=== PATIENT | male | born 1935 | race Caucasian/White ===

== ENCOUNTER 2023-06-24 18:25 | Observation (INO) | payer MEDICARE, OTHER, SELFPAY ==
[2023-06-24] VITALS (10 sets, daily range): BP systolic 98–130; BP diastolic 50–63; BMI 28.5; BMI 22.7
--- NOTE | 2023-06-24 12:25 | ED.GENMED ---
History of Present Illness
General
Chief Complaint: Cough
Source: patient and family
Exam Limitations: none
Time Seen by Provider: 06/24/23 12:07
Nursing documentation reviewed up to this point in time: agreed with
Travel History
Have you had any contact with someone who has COVID-19?: No
Do you have any symptoms of coronavirus? Fever > 100 degrees, chills, cough, shortness of breath, sore throat, loss of taste or smell, muscle aches, or headache?: No
History of Present Illness
History of Present Illness:
Patient is an 87-year-old male with past medical history of polymyalgia rheumatica CAD hyperlipidemia reflux, chronic kidney disease stage III, right hip replacement presents to the ER for weakness over the past 2 weeks. He also has had some joint
aches and muscle aches. Today however he developed a fever as high as 102. Here in the ER patient and family noticed that his bilateral lower extremities were very red they believe this is new. He has had mild cough, denies shortness of breath.
Denies any urinary frequency urgency or dysuria
Past History
Past History
ED Past Medical History: Asthma, CAD, COPD, GERD and Other (Osteoarthritis, cataracts, spinal stenosis)
ED Past Surgical History: Orthopedic and Other (Cataracts)
Social History
Tobacco: Non-smoker
Alcohol: None
Drug: None
Personal:
Living: with family
Review of Systems
Review of Systems
Allergies reviewed?: Yes
Other source history: family
All Other Systems: ROS reviewed and negative except as documented in HPI and ROS
Constitutional: Reports fever (fever 102 today ) and fatigue
EENT: Reports no symptoms
Respiratory: Reports no symptoms; Denies trouble breathing
Cardiac: Reports no symptoms
ABD/GI: Reports no symptoms
: Reports no symptoms
Musculoskeletal: Reports other (today here noticed redness to b/l l/e and increased swelling )
Skin: Reports other (see above )
Neurological: Reports no symptoms
Psychiatric: Reports no symptoms
Phy Exam
General Physical Exam
General Presentation: no apparent distress
General age: appears stated age
General Skin: warm and dry
General Habitus: elderly
General Mental: alert
General Hydration: appears well hydrated
Cardiovascular Exam
Cardiovascular Exam: regular rate/rhythm, no murmur and normal peripheral pulses
Pulmonary Exam
Pulmonary Exam: lungs clear and no respiratory distress
Neurological Exam
Neurological Exam: alert and oriented x3
Musculoskeletal Exam
Musculoskeletal Exam: other (Bilateral lower extremities are red and swollen increased to right lower extremity, scattered blistering to left lower leg )
Skin Exam
Skin Exam: normal color and warm/dry
Psychiatric Exam
Psychiatric Exam: normal mood/affect
Course
Orders/Labs/Results
Orders:
Orders
06/24/23 12:25
Cardiac Monitoring- Treatment ONCE
IV Insert/Care/Rem.- Treatment PRN
06/24/23 12:31
COVID-19 Antigen Urgent
Source: Nasal Swab
Complete Blood Count/With Diff Urgent
Comprehensive Metabolic Panel Urgent
Lactic Acid Q4H
Comment: CANCEL 2nd LACTIC ACID IF 1st LACTIC ACID IS LESS THAN 2
Blood Culture Q30M
RAFAEL Source: Blood/Venous
Specimen Description:
Blood Culture Q30M
RAFAEL Source: Blood/Venous
Specimen Description:
Influenza A+B Rapid Molecular Urgent
RAFAEL Source: Nasal Swab
Specimen Description:
06/24/23 13:59
Chest [CR Chest - 2 Views ] Urgent
Comment:
Reason For Exam: fever
06/24/23 14:02
Electrocardiogram (*1) Urgent
Reason for Study: Other
Other Reason for Exam: admission
Cardiac Monitoring- Treatment ONCE
EKG- Treatment ONCE
06/24/23 16:10
Urinalysis Reflex To Culture Urgent
Date Specimen was Collected: 06/24/23
Time Specimen was Collected: 13:12
06/24/23 16:16
CeFAZolin 1 GRAM [Ancef] 1 gram in 5 ml IV NOW
06/24/23 16:46
Venous Doppler Lwr Ext Bilat [US Periph Venous LOWER Ext Magnus] Urgent
Comment:
Reason For Exam: swelling
Abnormal Lab Results
06/24/23
12:31
RBC 3.41 L 10^6/uL
(4.70-6.10)
Hgb 11.8 L g/dL
(13.0-18.0)
Hct 33.7 L %
(39.0-52.0)
MCV 98.8 H fL
(80.0-94.0)
MCH 34.6 H pg
(27.0-31.0)
Abs Immat Gran (auto) 0.1 H 10^3/uL
(0-0.05)
Absolute Lymphs (auto) 0.7 L 10^3/uL
(1.2-3.4)
Absolute Monos (auto) 0.8 H 10^3/uL
(0.1-0.6)
Immature Gran % 0.7 H %
(0-0.5)
Lymphocytes % 7.6 L %
(20.5-51.1)
Monocytes % 9.7 H %
(1.7-9.3)
Eosinophils % 8.2 H %
(0-6)
Sodium 133 L mmol/L
(135-145)
BUN 45 H mg/dl
(9-20)
Creatinine 2.0 H mg/dL
(0.7-1.3)
Glucose 103 H mg/dl
(70-99)
Calcium 7.9 L mg/dl
(8.4-10.2)
Total Bilirubin 2.1 H mg/dl
(0.2-1.3)
Total Protein 5.5 L g/dl
(6.3-8.2)
Albumin 3.2 L g/dl
(3.5-5.0)
06/24/23 12:31
06/24/23 12:31
Vital Signs
Initial and Last Documented VS:
Initial Vital Signs
Temp Pulse Resp Pulse Ox
99.1 F 64 13 93
06/24/23 11:56 06/24/23 11:56 06/24/23 11:56 06/24/23 11:56
Last Documented Vital Signs
Temp Pulse Resp BP Pulse Ox
98.5 F 57 12 109/52 94
06/24/23 15:26 06/24/23 15:26 06/24/23 15:26 06/24/23 15:26 06/24/23 15:26
MDM/Problems Addressed
Differential Diagnosis Includes:
not limited to:
Infection cellulitis dehydration anemia URI COVID flu
MDM/Problems Addressed:
Patient is an 87-year-old male with history as document above presents with weakness for the past 2 weeks and then today developed a fever of 102.
On exam patient has significant erythema to bilateral lower extremities worse on the right lower extremity with swelling. Patient is afebrile here with a normal white count negative lactic however with significant swelling and complaints of
weakness will admit and treat for cellulitis. Patient does have a history of chronic kidney disease renal function elevated however at baseline. Pt has had mild cough neg covid neg flu will check chest . no UTI c/o however will check urine
1647: Patient's urine is negative. No acute findings on chest x-ray. Will admit and treat for cellulitis. Will order ultrasound of bilateral lower extremities. IV Ancef was ordered. Case discussed admitting hospitalist
Chronic conditions affecting care:
ESRD
*Radiology
Radiology exam reviewed: preliminary read by ED provider
*Pulse Oximetry
Patient hypoxic: no
*EKG
Interpreted by ED Provider?: Yes
Interpretation: normal
Comparison EKG: no changes
Heart Rate: 58
Rate: bradycardiac
Rhythm: sinus
*Critical Care Note
Total Time (30-74mins, 75-104mins- exclusive of procedures): Not Applicable
ED Attending Note
-
Portions of this chart may have been created with voice recognition software.� Occasional wrong word or��sound alike� substitutions may have occurred due to the inherent limitations of voice recognition software.
Discharge Plan
Departure
Patient Disposition: Admit
Date of Disposition: 06/24/23
Time of Disposition: 16:47
Admit to: Med/Surg
Admit to doctor: hospitalist
Presentation/result/management discussed w/ accepting MD/DO: Hospitalist
Patient with high blood pressure during this ER visit?: No
Condition: Fair
Covid-19: Not Applicable
Discharge Problem:
Weakness, Cellulitis
Prescriptions:
No Action
atorvastatin 10 MG tablet
10 mg PO DAILY
pantoprazole 40 MG tablet,delayed release (DR/EC)
40 mg PO DAILY
cyanocobalamin (vitamin B-12) 1,000 MCG tablet
1,000 mcg PO DAILY
cholecalciferol (vitamin D3) 1,000 UNITS tablet
1,000 units PO DAILY
magnesium oxide 400 MG tablet
400 mg PO DAILY
aspirin 81 MG tablet,delayed release (DR/EC)
81 mg PO DAILY
acetaminophen [Tylenol Extra Strength] 500 MG tablet
500 mg PO Q8HPRN PRN (Reason: MILD PAIN)
potassium chloride 8 MEQ tablet extended release
8 meq PO Q48H
Rx Instructions:
takes with Lasix 40mg
prednisone 5 mg tablet
8 mg PO Q48H
Patient Comments:
06/24/2023: Pt takes a 5mg and 1mg's. and takes on days Lasix 40mg are taken
prednisone 5 mg tablet
9 mg PO Q48H
Patient Comments:
06/24/2023: Pt takes a 5mg and 1mg's. and takes on days Lasix 20mg are taken
furosemide 20 mg tablet
20 mg PO Q48H
coenzyme Q10 [Co Q-10] 100 mg Capsule
100 mg PO DAILY
PreserVision AREDS 4,296 mcg-226 mg-90 mg Capsule
1 cap PO DAILY
fluticasone furoate-vilanterol [Breo Ellipta] 100-25 mcg/dose blister with device
1 inh INHALATION R DAILY
chlorpheniramine maleate
1 tab PO DAILY
furosemide 40 MG tablet
40 mg PO Q48H
Referrals:
Primo Blanton MD [Family Provider] -
Interventions
Interventions:
*Risk Screen - Suicide Last Done: 06/24/23 11:56
*General Assessment Last Done: 06/24/23 11:56
*Neglect/Abuse Screening Last Done: 06/24/23 11:56
ED- Fall Risk Assessment Last Done: 06/24/23 12:00
*ED COVID-19 Vaccine History Last Done: 06/24/23 11:56
ED- Pulmonary Assessment Last Done: 06/24/23 12:00
[2023-06-24 12:56] LABS: % Basophils 0.7 % (0-2); % Eosinophils 8.2 % (0-6); % Immature Granulocytes 0.7 % (0-0.5); % Lymphocytes 7.6 % (20.5-51.1); % Monocytes 9.7 % (1.7-9.3); % Neutrophils 73.1 % (42.2-75.2); Absolute Basophils 0.1 10^3/uL (0-0.2); Absolute Eosinophils 0.7 10^3/uL (0-0.7); Absolute Immature Granulocytes 0.1 10^3/uL (0-0.05); Absolute Lymphocytes 0.7 10^3/uL (1.2-3.4); Absolute Monocytes 0.8 10^3/uL (0.1-0.6); Absolute Neutrophils 6.4 10^3/uL (1.4-6.5); Hematocrit 33.7 % (39.0-52.0); Hemoglobin 11.8 g/dL (13.0-18.0); Mean Corpuscular Hgb 34.6 pg (27.0-31.0); Mean Corpuscular Volume 98.8 fL (80.0-94.0); Mean Platelet Volume 9.5 fL (7.4-10.4); Nucleated Red Blood Cells % 0 % (-); Platelet Count 237 10^3/uL (130-400); Red Blood Cell Count 3.41 10^6/uL (4.70-6.10); Red Cell Dist. Width 13.8 % (11.5-14.5); White Blood Cell Count 8.7 10^3/uL (4.8-10.8)
[2023-06-24 13:06] LABS: COVID-19 Antigen Negative (Negative)
[2023-06-24 13:14] LABS: Lactic Acid 1.3 mmol/L (0.7-2.0)
[2023-06-24 13:15] LABS: ALT (SGPT) 22 U/L (0-50); AST (SGOT) 27 U/L (17-59); Albumin 3.2 g/dl (3.5-5.0); Alkaline Phosphatase 73 U/L (38-126); Blood Urea Nitrogen 45 mg/dl (9-20); Calcium 7.9 mg/dl (8.4-10.2); Carbon Dioxide 28 mmol/L (22-30); Chloride 98 mmol/L (98-107); Estimated Creatinine Clearance 25 ml/min; Glucose 103 mg/dl (70-99); Potassium 3.7 mmol/L (3.5-5.1); Sodium 133 mmol/L (135-145); Total Bilirubin 2.1 mg/dl (0.2-1.3); Total Protein 5.5 g/dl (6.3-8.2); eGFR 31.51
[2023-06-24 16:24] LABS: Urine Albumin Negative (Neg - Trace); Urine Bilirubin Negative (Negative); Urine Character Clear (Clear); Urine Color Yellow; Urine Glucose Negative (Negative); Urine Ketone Negative (Negative); Urine Leukocyte Negative (Negative); Urine Nitrite Negative (Negative); Urine Occult Blood Negative (Negative); Urine Urobilinogen Negative (Neg - 1+); Urine pH 6.5 (5.0-9.0)
[2023-06-24] MEDS: ANCEF 5 IV ×2 (16:47→23:00)
--- NOTE | 2023-06-24 16:51 | HPS.HSE ---
Family Physician
-
Family Physician: Primo Blanton
Chief Complaint
-
Weakness
History of Present Illness
87 y/o M with PMHx
CAD s/p stent
Essential hypertension
Hyperlipidemia
COPD
GERD
PMR
CKD3b
R hip replacement 01/2021
who p/w CC weakness. Patient reports he has been weak for the last 2 weeks. Over the last few days he has developed erythema in his legs. He had a fever of 102 �F this morning. 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
heart syndrome.' He denies chest pain, nausea, vomiting, diarrhea, visual symptoms, neck stiffness, focal neurological deficit. He does report some headache.
Medical History
Past Medical History
Past Medical History: Reports Other (as per HPI)
Past Surgical History: Reports Other (N/A)
Social History
Tobacco: Non-smoker
Alcohol: None
Drug: None
Family History
Family History: Not pertinent
Allergies / Home Medications
Allergies reflects when Allergies were last updated in [facility].
Home Medications with original date entered in [facility]
Allergy/Medication List:
Allergies
Allergy/AdvReac Type Severity Reaction Status Date / Time
tetracycline Allergy eruption Verified 04/15/21 05:37
of penis
Home Medications
atorvastatin 10 mg tablet 10 mg PO DAILY High cholesterol 01/30/19
pantoprazole 40 mg tablet,delayed release 40 mg PO DAILY Gastrointestinal issue 01/30/19
cholecalciferol (vitamin D3) 25 mcg (1,000 unit) tablet 1,000 units PO DAILY Supplement 02/03/21
cyanocobalamin (vitamin B-12) 1,000 mcg tablet 1,000 mcg PO DAILY Supplement 02/03/21
magnesium oxide 400 mg PO DAILY Supplement 02/03/21
acetaminophen 500 mg tablet (Tylenol Extra Strength) 500 mg PO Q8HPRN PRN MILD PAIN 04/15/21
aspirin 81 mg tablet,delayed release 81 mg PO DAILY Heart disease/condition 04/15/21
potassium chloride 8 mEq tablet,extended release 8 meq PO Q48H 04/15/21
chlorpheniramine maleate 1 tab PO DAILY 06/24/23
coenzyme Q10 100 mg capsule (Co Q-10) 100 mg PO DAILY 06/24/23
fluticasone furoate 100 mcg-vilanterol 25 mcg/dose inhalation powder (Breo Ellipta) 1 inh inhalation R DAILY 06/24/23
furosemide 20 mg tablet 20 mg PO Q48H 06/24/23
furosemide 40 mg tablet 40 mg PO Q48H 06/24/23
prednisone 5 mg tablet 8 mg PO Q48H 06/24/23
prednisone 5 mg tablet 9 mg PO Q48H 06/24/23
vitamins A,C,V-evin-oyodbn 4,296 mcg-226 mg-90 mg capsule (PreserVision AREDS) 1 cap PO DAILY 06/24/23
Review of Systems
-
History Source: Patient
A 12 point ROS was completed and negative except as noted: Yes
Physical Exam
Vital Signs
Vital Signs
Temp Pulse Resp BP Pulse Ox
98.5 F 57 12 109/52 94
06/24/23 15:26 06/24/23 15:26 06/24/23 15:26 06/24/23 15:26 06/24/23 15:26
Physical Exam
General: Other (.)
Laboratory Results
-
06/24/23 12:31
06/24/23 12:31
Laboratory Results
Lactic Acid Cancelled 06/24/23 16:30
Total Bilirubin 2.1 mg/dl (0.2-1.3) H 06/24/23 12:31
AST 27 U/L (17-59) 06/24/23 12:31
ALT 22 U/L (0-50) 06/24/23 12:31
Alkaline Phosphatase 73 U/L (38-126) 06/24/23 12:31
Impression/Plan
-
Gen: NAD, AAOx3, appears chronically ill
Eyes: EOMI, PERRLA, no scleral icterus.
Neck: supple.
CV: tl, reg rhythm, +S1/S2, no m/r/g.
Resp: CTAB, no rales, wheezes, or rhonchi.
Abd: +BS, soft, NT, ND
Skin: 3+ B/L LE edema. LLE>RLE edema.
Neuro: CN 2-12 intact, non-focal.
Psych: Normal mood and affect.
CXR (read by me, official read pending): Hyperinflation consistent with COPD, no focal infiltrate.
B/L LE erythema:
-LLE>RLE
-no fever here, no leukocytosis
-c/s ID
-IV Ancef for now but likely can quickly switch to PO Keflex if this is indeed cellulitis (could also simply be chronic venous stasis dermatitis)
Other problems:
CAD s/p stent: cont ASA/statin
Essential hypertension: SBPs in ER 90s-110s, question diagnosis. Pt on Lasix at home.
Hyperlipidemia: Cont statin
COPD: cont Breo Ellipta
GERD: cont PPI
PMR: cont Prednisone
CKD3b
R hip replacement 01/2021
DNR
--- NOTE | 2023-06-24 21:28 | W.PN.UPDATE ---
Update Note
Progress Note Update
pt requesting ambien. States he takes it daily at home.
pdmp checked script filled 06/23/23
[2023-06-24] MEDS: AMBIEN 5 MG PO (22:57)
[2023-06-24] MEDS: HEPARIN 5000 UNITS SC (23:00)
--- NOTE | 2023-06-24 23:53 | PTCARENOTE ---
Receive pt from ER. Pt alert oriented X3, calm and cooperative. Pt pulled over to his bed from the stretcher. Pt is in no distress, states that he has chronic spine pain. Air pillow offered for pt's back. Pt agreeable. Pt legs are red and swollen.
Pt refuses any pain medicine for now. Condom catheter placed on pt. VSS (T=98, HR=59, RR=18, XG=56001, SpO2=97% on RA). Pt oriented to the room, call saunders within reach. Will follow.
[2023-06-25 05:40] VITALS: BMI 22.8
[2023-06-25 06:02] LABS: % Basophils 0.4 % (0-2); % Eosinophils 16.6 % (0-6); % Immature Granulocytes 0.4 % (0-0.5); % Lymphocytes 15.1 % (20.5-51.1); % Monocytes 12.5 % (1.7-9.3); Absolute Eosinophils 1.4 10^3/uL (0-0.7); Absolute Lymphocytes 1.3 10^3/uL (1.2-3.4); Absolute Monocytes 1.1 10^3/uL (0.1-0.6); Absolute Neutrophils 4.7 10^3/uL (1.4-6.5); Hemoglobin 10.9 g/dL (13.0-18.0); Mean Corp Hgb Conc. 34.1 g/dL (33.0-37.0); Mean Corpuscular Hgb 33.9 pg (27.0-31.0); Mean Corpuscular Volume 99.4 fL (80.0-94.0); Mean Platelet Volume 9.5 fL (7.4-10.4); Nucleated Red Blood Cells % 0 % (-); Platelet Count 233 10^3/uL (130-400); Red Blood Cell Count 3.22 10^6/uL (4.70-6.10); Red Cell Dist. Width 13.5 % (11.5-14.5); White Blood Cell Count 8.6 10^3/uL (4.8-10.8)
[2023-06-25 06:21] LABS: Blood Urea Nitrogen 41 mg/dl (9-20); Calcium 7.8 mg/dl (8.4-10.2); Carbon Dioxide 33 mmol/L (22-30); Chloride 100 mmol/L (98-107); Estimated Creatinine Clearance 23 ml/min; Glucose 84 mg/dl (70-99); Potassium 3.3 mmol/L (3.5-5.1); Sodium 134 mmol/L (135-145); eGFR 29.72
[2023-06-25 07:00] VITALS: BP 111/53
[2023-06-25] MEDS: SYMBICORT 160/4.5 MCG INHALER 2 PUFF INH ×2 (08:09→20:16)
[2023-06-25] MEDS: ANCEF 5 IV ×3 (09:42→23:56)
[2023-06-25] MEDS: DELTASONE 4 MG PO (09:43)
[2023-06-25] MEDS: DELTASONE 5 MG PO (09:43)
[2023-06-25] MEDS: ASPIR LOW (ENTERIC COATED) 81 MG PO (09:43)
[2023-06-25] MEDS: HEPARIN 5000 UNITS SC ×3 (09:44→23:57)
[2023-06-25] MEDS: LASIX 20 MG PO (09:44)
[2023-06-25] MEDS: VITAMIN B-12 1000 MCG PO (09:44)
[2023-06-25] MEDS: VITAMIN D3 (cholecalciferol) 1000 UNITS PO (09:44)
[2023-06-25] MEDS: PROTONIX 40 MG PO (09:44)
[2023-06-25] MEDS: LIPITOR 10 MG PO (09:45)
[2023-06-25] MEDS: OCUVITE SOFTGEL 1 CAP PO (09:45)
[2023-06-25] MEDS: MAG-TAB SR 84 MG PO (09:45)
--- NOTE | 2023-06-25 09:54 | W.PN.HOSP.TC ---
Today's Communication/Plan
-
see bold
Assessment / Plan
Assessment / Plan
Gen: NAD, AAOx3, appears chronically ill
Eyes: EOMI, PERRLA, no scleral icterus.
Neck: supple.
CV: RRR, +S1/S2, no m/r/g.
Resp: CTAB anteriorly, no rales, wheezes, or rhonchi.
Abd: +BS, soft, NT, ND
Skin: 3+ B/L LE edema. B/L LE erythema.
Neuro: CN 2-12 intact, non-focal.
Psych: Normal mood and affect.
CXR: Findings suggesting new mild right upper lobe developing pneumonia.
B/L LE U/S: No sonographic evidence for lower extremity venous thrombosis. Moderate bilateral calf soft tissue edema.
B/L LE erythema:
-LLE>RLE on admission, now fairly equal B/L
-cont IV ancef for now as per ID
-Regarding the chest x-ray findings above, the patient has no symptoms of pneumonia. He is not hypoxemic, he is afebrile, and has no leukocytosis.
Other problems:
CAD s/p stent: cont ASA/statin
Essential hypertension: SBPs in ER 90s-110s, question diagnosis. Pt on Lasix at home.
Hyperlipidemia: Cont statin
COPD: cont Breo Ellipta
GERD: cont PPI
PMR: cont Prednisone
CKD3b
R hip replacement 01/2021
DNR
Anticipated Discharge: Within 24 hours
Subjective/Interval History
-
Date of Service: June 25, 2023
No new complaints.
Objective Data
-
Labs:
Laboratory Results
06/25/23
05:30
WBC 8.6
Hgb 10.9 L
Hct 32.0 L
Plt Count 233
Sodium 134 L
Potassium 3.3 L
Chloride 100
Carbon Dioxide 33 H
BUN 41 H
Creatinine 2.1 H
Glucose 84
Calcium 7.8 L
Vital Signs:
Vital Signs
Temp Pulse Resp BP Pulse Ox
98.2 F 63 16 111/53 96
06/25/23 07:00 06/25/23 09:44 06/25/23 08:12 06/25/23 09:44 06/25/23 08:12
I&O
06/24/23 06/25/23 06/26/23
06:59 06:59 06:59
Intake Total 240 / 240
Output Total 1000 / 1000
Balance -760 / -760
--- NOTE | 2023-06-25 10:07 | CON.ID ---
Consultation
-
Date/Time Consultation Requested: 06/24/2023 193
Date/Time Consultation Performed: 06/25/2023 0951
Requesting Provider: Dr. Rai
Performing Provider: Louie
Reason for Consultation: Lower extremity cellulitis
Chief Complaint / Past History
History of Present Illness
Abdias Chance is an 87-year-old male with significant past medical history of polymyalgia rheumatica being evaluated at the request of Dr. Rai in regards to lower extremity cellulitis. History is obtained from chart review, along with patient
interview.
The patient reports that approximate 2 weeks ago he developed with increasing general weakness, increasing depression and diffuse aches and pains which she notes is his common symptomatology with a flare of his PMR. He reports that he increased his
prednisone dose by 3 mg, but did not reach out to his physician regarding symptomatology. Ultimately he came to the emergency room because he was noted to have fever, and in the emergency room he was noted to have erythema of the lower extremities.
He has been started on antibiotics.
At this time he reports feeling about the same, with continued fatigue. His legs continue to remain edematous, but he denies significant pain in them. Since admission, he has not had any fevers recorded. Currently, he denies any chest pain or
shortness of breath. He denies any abdominal pain, nausea or vomiting.
Past History
Additional Past Medical History:
PMR
Asthma
CKD stage III
CAD
COPD
GERD
TEDDY
Spinal stenosis
Additional Past Surgical History:
Right hip replacement
Cataract surgery
Skin grafting
Allergy History:
tetracycline Allergy (Verified 04/15/21 05:37)
eruption of penis
Medications Reviewed: Yes
Current Antibiotics:
Cefazolin 1 g IV every 8 hours
Social History
Tobacco: Non-Smoker
Alcohol: None
Drug: None
Personal:
Living: With Family
Employment: Retired
Family History
Family History: Not Pertinent
Review of Systems
Vital Signs
Temp Pulse Resp BP Pulse Ox
98.2 F 63 16 111/53 96
06/25/23 07:00 06/25/23 09:44 06/25/23 08:12 06/25/23 09:44 06/25/23 08:12
Physical Exam
Physical Exam
Constitutional: No Acute Distress, Comfortable and Non-toxic
Eyes: No Conjunctival Hemorrhage and Sclera Anicteric
Cardiovascular: S1/S2; Negative S3/S4 or Murmur
Pulmonary: Clear and Non Labored; Negative Wheezes, Rales or Rhonchi
Gastrointestinal: Soft, Non Tender, Non Distended and Normal Bowel Sounds
Extremities: Edema (3+ B/L LE's with noted erythema. Mild warmth. Little significant tenderness.), Pulses and Venous Insufficiency
Musculoskeletal: Negative Joint Swelling or Joint Effusion
Skin: Warm and Dry; Negative Rash or Jaundice
Neurological: Awake and Alert
Psychological: Calm
Lab / Diagnostic Study Results
06/25/23 05:30
06/25/23 05:30
Abs Immat Gran (auto) 0.0 10^3/uL (0-0.05) 06/25/23 05:30
Absolute Neuts (auto) 4.7 10^3/uL (1.4-6.5) 06/25/23 05:30
Absolute Lymphs (auto) 1.3 10^3/uL (1.2-3.4) 06/25/23 05:30
Absolute Monos (auto) 1.1 10^3/uL (0.1-0.6) H 06/25/23 05:30
Absolute Basos (auto) 0.0 10^3/uL (0-0.2) 06/25/23 05:30
Immature Gran % 0.4 % (0-0.5) 06/25/23 05:30
Neutrophils % 55.0 % (42.2-75.2) 06/25/23 05:30
Lymphocytes % 15.1 % (20.5-51.1) L 06/25/23 05:30
Monocytes % 12.5 % (1.7-9.3) H 06/25/23 05:30
Eosinophils % 16.6 % (0-6) H 06/25/23 05:30
Basophils % 0.4 % (0-2) 06/25/23 05:30
Lactic Acid Cancelled 06/24/23 16:30
Microbiology Results
Micro:
06/24/23 12:31 Influenza Types A & B (NAT) - Final
Nasal Swab Negative for Influenza A & B, NAAT
Negative results must be combined with clinical observations
and patient history.
Nucleic Acid Amplification test (NAAT)performed on the
[employer] platform.
06/24/23 12:31 Blood Culture - Pending
Blood/Venous
06/24/23 12:31 Blood Culture - Pending
Blood/Venous
Imaging:
06/24/2023 bilateral lower extremity duplex ultrasound: No evidence of venous thrombosis. Moderate bilateral soft tissue edema.
Assessment / Plan
Bilateral lower extremity edema.
Bilateral lower extremity erythroderma
Reported fever (POA)
PMR
Asthma
CKD stage III
CAD
COPD
GERD
TEDDY
Spinal stenosis
Recommendations:
Blood cultures pending
Continue cefazolin for today.
Apply lower extremity compressive modalities to decrease edema. If improved erythema, can likely transition to oral Keflex in the next 24 hours.
Care Review
Plan reviewed with: Physician (Hospitalist)
[2023-06-25 11:45] VITALS: O2SAT 92
[2023-06-25 15:30] VITALS: BP 101/49
--- NOTE | 2023-06-25 15:37 | CM ---
CM reviewed medical records. [facility] letter given.
CM confirmed demographics. Patient lives independently with . Patient denies history of VN, SNF or DME. Patient uses [facility] for medication services. Patient is known to his PCP and is current. CM will continue to follow.
[2023-06-25] MEDS: COLACE 100 MG PO (20:47)
[2023-06-25] MEDS: AMBIEN 5 MG PO (20:50)
[2023-06-25 23:45] VITALS: BP 105/54
[2023-06-26 05:52] VITALS: BMI 22.7
[2023-06-26 07:25] VITALS: BP 110/53
[2023-06-26] MEDS: ANCEF 5 IV ×3 (07:57→23:11)
[2023-06-26] MEDS: DELTASONE 3 MG PO (07:58)
[2023-06-26] MEDS: ASPIR LOW (ENTERIC COATED) 81 MG PO (07:58)
[2023-06-26] MEDS: COLACE 100 MG PO (07:58)
[2023-06-26] MEDS: VITAMIN B-12 1000 MCG PO (07:59)
[2023-06-26] MEDS: OCUVITE SOFTGEL 1 CAP PO (07:59)
[2023-06-26] MEDS: PROTONIX 40 MG PO (07:59)
[2023-06-26] MEDS: MAG-TAB SR 84 MG PO (07:59)
[2023-06-26] MEDS: VITAMIN D3 (cholecalciferol) 1000 UNITS PO (07:59)
[2023-06-26] MEDS: KCL 10 MEQ PO (07:59)
[2023-06-26] MEDS: LIPITOR 10 MG PO (07:59)
[2023-06-26] MEDS: LASIX 40 MG PO (08:00)
[2023-06-26] MEDS: DELTASONE 5 MG PO (08:00)
[2023-06-26] MEDS: HEPARIN 5000 UNITS SC ×2 (08:00→16:04)
[2023-06-26] MEDS: SYMBICORT 160/4.5 MCG INHALER 2 PUFF INH ×2 (08:23→19:40)
--- NOTE | 2023-06-26 10:29 | W.PN.HOSP.TC ---
Today's Communication/Plan
-
see bold
Assessment / Plan
Assessment / Plan
Gen: NAD, AAOx3, appears chronically ill
Eyes: EOMI, PERRLA, no scleral icterus.
Neck: supple.
CV: tl, reg rhythm, +S1/S2, no m/r/g.
Resp: remains CTAB anteriorly, no rales, wheezes, or rhonchi.
Abd: +BS, soft, NT, ND
Skin: GIANNA wraps on B/L LEs
Neuro: CN 2-12 intact, non-focal.
Psych: Normal mood and affect.
CXR: Findings suggesting new mild right upper lobe developing pneumonia.
B/L LE U/S: No sonographic evidence for lower extremity venous thrombosis. Moderate bilateral calf soft tissue edema.
B/L LE erythema:
-LLE>RLE on admission, now fairly equal B/L
-cont IV ancef for now as per ID
-Regarding the chest x-ray findings above, the patient has no symptoms of pneumonia. He is not hypoxemic, he is afebrile, and has no leukocytosis.
Other problems:
CAD s/p stent: cont ASA/statin
Essential hypertension: SBPs in ER 90s-110s, question diagnosis. Pt on Lasix at home.
Hyperlipidemia: Cont statin
COPD: cont Breo Ellipta
GERD: cont PPI
PMR: cont Prednisone
CKD3b
R hip replacement 01/2021
DNR
Anticipated Discharge: Within 24 hours
Subjective/Interval History
-
Date of Service: June 26, 2023
Objective Data
-
Vital Signs:
Vital Signs
Temp Pulse Resp BP Pulse Ox
98.4 F 65 16 110/53 93
06/26/23 07:25 06/26/23 08:26 06/26/23 08:26 06/26/23 08:00 06/26/23 08:26
I&O
06/25/23 06/26/23 06/27/23
06:59 06:59 06:59
Intake Total 240 / 240 600 / 600
Output Total 1000 / 1000 550 / 550
Balance -760 / -760 50 / 50
[2023-06-26 11:00] LABS: % Basophils 0.4 % (0-2); % Eosinophils 14.7 % (0-6); % Immature Granulocytes 0.6 % (0-0.5); % Lymphocytes 8.9 % (20.5-51.1); % Monocytes 9.5 % (1.7-9.3); % Neutrophils 65.9 % (42.2-75.2); Absolute Eosinophils 1.2 10^3/uL (0-0.7); Absolute Immature Granulocytes 0.1 10^3/uL (0-0.05); Absolute Lymphocytes 0.7 10^3/uL (1.2-3.4); Absolute Monocytes 0.8 10^3/uL (0.1-0.6); Absolute Neutrophils 5.4 10^3/uL (1.4-6.5); Hematocrit 30.7 % (39.0-52.0); Hemoglobin 10.6 g/dL (13.0-18.0); Mean Corp Hgb Conc. 34.5 g/dL (33.0-37.0); Mean Corpuscular Hgb 33.3 pg (27.0-31.0); Mean Corpuscular Volume 96.5 fL (80.0-94.0); Mean Platelet Volume 9.1 fL (7.4-10.4); Nucleated Red Blood Cells % 0 % (-); Platelet Count 247 10^3/uL (130-400); Red Blood Cell Count 3.18 10^6/uL (4.70-6.10); Red Cell Dist. Width 13.5 % (11.5-14.5); White Blood Cell Count 8.2 10^3/uL (4.8-10.8)
[2023-06-26 11:09] LABS: Blood Urea Nitrogen 39 mg/dl (9-20); Calcium 7.8 mg/dl (8.4-10.2); Carbon Dioxide 31 mmol/L (22-30); Chloride 98 mmol/L (98-107); Estimated Creatinine Clearance 26 ml/min; Glucose 107 mg/dl (70-99); Potassium 3.4 mmol/L (3.5-5.1); Sodium 133 mmol/L (135-145); eGFR 33.51
[2023-06-26 13:55] VITALS: BP 107/52; PULSE 62
[2023-06-26 15:27] VITALS: BP 102/44
--- NOTE | 2023-06-26 16:08 | PTCARENOTE ---
Pt AAO x3, CROWE; OOB to chair/ambulated to BR with assist x1/walker, fabrizio well. VSS. On room air- pulseox 95%. Abd soft, rounded, fabrizio PO. Voids clear yellow urine in urinal. GIANNA wraps intact to BLE. Resting in bed at present, no c/o. Will
continue to monitor.
[2023-06-26] MEDS: COLACE PO (20:33)
--- NOTE | 2023-06-26 20:41 | PTCARENOTE ---
Pt stating he would like to be discharged as soon as possible tomorrow morning. Will pass information along to dayshift RN
[2023-06-26] MEDS: AMBIEN 5 MG PO (23:11)
[2023-06-26] MEDS: HEPARIN SC (23:32)
[2023-06-26 23:43] VITALS: BP 118/53
[2023-06-27 05:37] VITALS: BMI 22.7
[2023-06-27 06:02] LABS: % Basophils 0.6 % (0-2); % Eosinophils 19.1 % (0-6); % Immature Granulocytes 0.5 % (0-0.5); % Lymphocytes 13.6 % (20.5-51.1); % Monocytes 11.6 % (1.7-9.3); % Neutrophils 54.6 % (42.2-75.2); Absolute Basophils 0.1 10^3/uL (0-0.2); Absolute Eosinophils 1.7 10^3/uL (0-0.7); Absolute Lymphocytes 1.2 10^3/uL (1.2-3.4); Absolute Neutrophils 4.7 10^3/uL (1.4-6.5); Hematocrit 31.2 % (39.0-52.0); Hemoglobin 10.9 g/dL (13.0-18.0); Mean Corp Hgb Conc. 34.9 g/dL (33.0-37.0); Mean Corpuscular Hgb 33.6 pg (27.0-31.0); Mean Corpuscular Volume 96.3 fL (80.0-94.0); Mean Platelet Volume 9.2 fL (7.4-10.4); Nucleated Red Blood Cells % 0 % (-); Platelet Count 258 10^3/uL (130-400); Red Blood Cell Count 3.24 10^6/uL (4.70-6.10); Red Cell Dist. Width 13.4 % (11.5-14.5); White Blood Cell Count 8.7 10^3/uL (4.8-10.8)
[2023-06-27 06:25] LABS: Blood Urea Nitrogen 41 mg/dl (9-20); Calcium 8.2 mg/dl (8.4-10.2); Carbon Dioxide 30 mmol/L (22-30); Chloride 96 mmol/L (98-107); Estimated Creatinine Clearance 24 ml/min; Glucose 98 mg/dl (70-99); Potassium 3.4 mmol/L (3.5-5.1); Sodium 136 mmol/L (135-145); eGFR 31.51
[2023-06-27 06:46] VITALS: BP 116/57
[2023-06-27] MEDS: SYMBICORT 160/4.5 MCG INHALER 2 PUFF INH (07:28)
[2023-06-27] MEDS: ANCEF 5 IV (08:44)
[2023-06-27] MEDS: PROTONIX 40 MG PO (08:44)
[2023-06-27] MEDS: LIPITOR 10 MG PO (08:45)
[2023-06-27] MEDS: LASIX 20 MG PO (08:45)
[2023-06-27] MEDS: OCUVITE SOFTGEL 1 CAP PO (08:45)
[2023-06-27] MEDS: VITAMIN D3 (cholecalciferol) 1000 UNITS PO (08:45)
[2023-06-27] MEDS: COLACE 100 MG PO (08:45)
[2023-06-27] MEDS: VITAMIN B-12 1000 MCG PO (08:45)
[2023-06-27] MEDS: MAG-TAB SR 84 MG PO (08:45)
[2023-06-27] MEDS: DELTASONE 5 MG PO (08:46)
[2023-06-27] MEDS: HEPARIN SC (08:46)
[2023-06-27] MEDS: DELTASONE 4 MG PO (08:46)
[2023-06-27] MEDS: ASPIR LOW (ENTERIC COATED) 81 MG PO (09:45)
--- NOTE | 2023-06-27 11:48 | W.PN.HOSP.TC ---
Addendum entered and electronically signed by Jordy Morgan MD 06/27/23 14:36:
More than 30 minutes spent in discharge including
Final examination of the patient
Summarizing hospital stay
Instructions for continuing care to all relevant caregivers
Preparation of discharge records, prescriptions, and referral forms
Total time spent (in minutes): 42
Original Note:
Today's Communication/Plan
-
ID recs
replete kcl
Assessment / Plan
Assessment / Plan
Gen: NAD, AAOx3, appears chronically ill
Eyes: EOMI, PERRLA, no scleral icterus.
Neck: supple.
CV: tl, reg rhythm, +S1/S2, no m/r/g.
Resp: remains CTAB anteriorly, no rales, wheezes, or rhonchi.
Abd: +BS, soft, NT, ND
Skin: GIANNA wraps on B/L LEs
Neuro: CN 2-12 intact, non-focal.
Psych: Normal mood and affect.
CXR: Findings suggesting new mild right upper lobe developing pneumonia.
B/L LE U/S: No sonographic evidence for lower extremity venous thrombosis. Moderate bilateral calf soft tissue edema.
B/L LE erythema:
-LLE>RLE on admission, now fairly equal B/L
-cont IV ancef for now as per ID-
-Regarding the chest x-ray findings above, the patient has no symptoms of pneumonia. He is not hypoxemic, he is afebrile, and has no leukocytosis.
CAD s/p stent: cont ASA/statin
Essential hypertension: SBPs in ER 90s-110s, question diagnosis. Pt on Lasix at home.
Hyperlipidemia: Cont statin
COPD: cont Breo Ellipta
GERD: cont PPI
PMR: cont Prednisone
[id number] at 2-baseline.
R hip replacement 01/2021
Hypokalemia-replete/monitor
DNR
PT/OT-home health.
Dispo-ID recs. ?po abx.
Anticipated Discharge: Today
Subjective/Interval History
-
Date of Service: June 27, 2023
states improvement in erythema of legs
afebrile
tolerating diet
Objective Data
-
Labs:
Laboratory Results
06/27/23
05:24
WBC 8.7
Hgb 10.9 L
Hct 31.2 L
Plt Count 258
Sodium 136
Potassium 3.4 L
Chloride 96 L
Carbon Dioxide 30
BUN 41 H
Creatinine 2.0 H
Glucose 98
Calcium 8.2 L
Vital Signs:
Vital Signs
Temp Pulse Resp BP Pulse Ox
98.0 F 60 16 116/57 92
06/27/23 06:46 06/27/23 08:45 06/27/23 07:32 06/27/23 08:45 06/27/23 07:32
I&O
06/26/23 06/27/23 06/28/23
06:59 06:59 06:59
Intake Total 600 / 600 1020 / 1020
Output Total 550 / 550 925 / 925
Balance 50 / 50 95 / 95
[2023-06-27] MEDS: KCL 20 MEQ PO (12:08)
--- NOTE | 2023-06-27 13:03 | CM ---
Chart reviewed. Spoke with pt and his at bedside
Discussed PT recommendation - snf
Pt refusing SNF. Pt and agreeable to home services
Requested [facility] - referral sent
Discussed IMM
Plan - home with home services - [facility]
Fax - [phone]
--- NOTE | 2023-06-27 13:47 | W.PN.ID1 ---
Date of Service
Date of Service: June 27, 2023
Today's Communication
Transition to Keflex for an additional 5 days.
Assessment / Plan
Bilateral lower extremity edema.
Bilateral lower extremity erythroderma
Reported fever (POA)
PMR
Asthma
CKD stage III
CAD
COPD
GERD
TEDDY
Spinal stenosis
Recommendations:
Blood cultures without growth.
Transition to cephalexin 500 mg p.o. BID for an additional 5 days.
Continue with lower extremity Tubigrip's plus minus Brennen wrap's to control lower extremity edema. May ultimately benefit from an evaluation and a lymphedema clinic.
����������������������������������������������������������
Chief Complaint
-: Cellulitis
Subjective / Review of Systems
Review of Systems: No Fever and No Chills
Vital Signs / Physical Exam
Vital Signs
Vital Signs
Temp Pulse Resp BP Pulse Ox
98.0 F 60 16 116/57 92
06/27/23 06:46 06/27/23 08:45 06/27/23 07:32 06/27/23 08:45 06/27/23 07:32
Physical Exam
Constitutional: No Acute Distress, Comfortable and Non-toxic
Eyes: Sclera Anicteric
Pulmonary: Non Labored
Extremities: Edema (2+ edema of the bilateral lower extremities) and Erythema (Bilateral lower extremity erythroderma with minimal significant warmth. No significant tenderness.)
Wound: None
Objective Data
Lab Data
Lab Results
06/27/23 05:24
06/27/23 05:24
Estimated Creat Clear 24 ml/min 06/27/23 05:24
Lactic Acid Cancelled 06/24/23 16:30
Total Bilirubin 2.1 mg/dl (0.2-1.3) H 06/24/23 12:31
AST 27 U/L (17-59) 06/24/23 12:31
ALT 22 U/L (0-50) 06/24/23 12:31
Alkaline Phosphatase 73 U/L (38-126) 06/24/23 12:31
Most recent labs reviewed.
Micro Results:
06/24/23 12:31 Blood Culture - Preliminary
Blood/Venous No Growth in 72 hours- Final report to follow
06/24/23 12:31 Blood Culture - Preliminary
Blood/Venous No Growth in 72 hours- Final report to follow
06/24/23 12:31 Influenza Types A & B (NAT) - Final
Nasal Swab Negative for Influenza A & B, NAAT
Negative results must be combined with clinical observations
and patient history.
Nucleic Acid Amplification test (NAAT)performed on the
[employer] platform.
Imaging:
06/24/2023 bilateral lower extremity duplex ultrasound: No evidence of venous thrombosis. Moderate bilateral soft tissue edema.
Care Review
Plan reviewed with: Physician (Hospitalist)
--- NOTE | 2023-06-27 14:34 | W.DCSUMMARY ---
Discharge Summary
Discharge Data
Date of Admission: 06/24/23
Date of Discharge: 06/27/23
-
Pending Results: No
Hospital Course
87-year-old male past medical history of hypertension, hyperlipidemia, COPD, GERD, PMR, CKD, who is presenting with bilateral lower extremity erythema and weakness. B/L LE U/S: No sonographic evidence for lower extremity venous thrombosis. Moderate
bilateral calf soft tissue edema. Patient blood cultures remain negative. Patient was afebrile. Infectious disease was consulted. IV Ancef was started. Patient with improving erythema. Patient will be discharged on p.o. Keflex.
Discharge Plan
-
Patient Disposition: Home with Home Care
Discharge Diagnosis/Procedures: Bilateral lower extremity erythema
Condition: Fair
Diet: As tolerated
Activity: With assistance and As tolerated
Driving Restrictions: As prior to admission
Referrals:
Primo Blanton MD [Family Provider] - in less than 1 week
Prescriptions:
New
cephalexin 500 mg Capsule
500 mg PO BID 5 Days Qty: 10 0RF
Continued
atorvastatin 10 MG tablet
10 mg PO DAILY
pantoprazole 40 MG tablet,delayed release (DR/EC)
40 mg PO DAILY
cyanocobalamin (vitamin B-12) 1,000 MCG tablet
1,000 mcg PO DAILY
cholecalciferol (vitamin D3) 1,000 UNITS tablet
1,000 units PO DAILY
magnesium oxide 400 MG tablet
400 mg PO DAILY
aspirin 81 MG tablet,delayed release (DR/EC)
81 mg PO DAILY
acetaminophen [Tylenol Extra Strength] 500 MG tablet
500 mg PO Q8HPRN PRN (Reason: MILD PAIN)
potassium chloride 8 MEQ tablet extended release
8 meq PO Q48H
Rx Instructions:
takes with Lasix 40mg
prednisone 5 mg tablet
8 mg PO Q48H
Patient Comments:
06/24/2023: Pt takes a 5mg and 1mg's. and takes on days Lasix 40mg are taken
prednisone 5 mg tablet
9 mg PO Q48H
Patient Comments:
06/24/2023: Pt takes a 5mg and 1mg's. and takes on days Lasix 20mg are taken
furosemide 20 mg tablet
20 mg PO Q48H
coenzyme Q10 [Co Q-10] 100 mg Capsule
100 mg PO DAILY
PreserVision AREDS 4,296 mcg-226 mg-90 mg Capsule
1 cap PO DAILY
fluticasone furoate-vilanterol [Breo Ellipta] 100-25 mcg/dose blister with device
1 inh INHALATION R DAILY
furosemide 40 MG tablet
40 mg PO Q48H
zolpidem [Ambien] 5 mg Tablet
5 mg PO HS
Discontinued
chlorpheniramine maleate
1 tab PO DAILY
Discharge Orders:
Discharge Patient (As Directed); Ordered 06/27/23
Ordered By: Jordy Morgan
== END 2023-06-27 15:19 | disposition home health service (06) ==
LOC: 4 EAST ACU 18:25
PROVIDERS: Nurse Practitioner; ADMITTING PHYSICIAN Internal Medicine; ATTENDING PHYSICIAN Hospitalist; CONSULT PHYSICIAN Internal Medicine Infectious Disease; EMERGENCY PHYSICIAN Emergency Medicine; FAMILY PHYSICIAN Internal Medicine
DX: L53.9 Erythematous condition, unspecified (principal); R60.0 Localized edema; R05.9 Cough, unspecified; R53.1 Weakness; R50.9 Fever, unspecified; E78.5 Hyperlipidemia, unspecified; I25.10 Atherosclerotic heart disease of native coronary artery without angina pectoris; K21.9 Gastro-esophageal reflux disease without esophagitis; M35.3 Polymyalgia rheumatica; I12.9 Hypertensive chronic kidney disease with stage 1 through stage 4 chronic kidney disease, or unspecified chronic kidney disease; G47.33 Obstructive sleep apnea (adult) (pediatric); N18.30 Chronic kidney disease, stage 3 unspecified; M19.90 Unspecified osteoarthritis, unspecified site; J44.9 Chronic obstructive pulmonary disease, unspecified; J45.909 Unspecified asthma, uncomplicated; Z96.641 Presence of right artificial hip joint; Z11.52 Encounter for screening for COVID-19; Z79.82 Long term (current) use of aspirin; Z79.51 Long term (current) use of inhaled steroids; Z79.52 Long term (current) use of systemic steroids; Z95.5 Presence of coronary angioplasty implant and graft; Z88.1 Allergy status to other antibiotic agents
CPT/HCPCS: 71046; 80048; 80053; 81003; 83605; 85025; 87040; 87502; 87811; 93005; 93970; 94640; 96374; 97162; 97166; 99285; G0378

== ENCOUNTER 2023-08-29 21:19 | Inpatient (IN) | payer MEDICARE, OTHER, SELFPAY ==
[2023-08-29 16:31] VITALS: BP 116/67
[2023-08-29 16:53] LABS: % Basophils 0.2 % (0-2); % Immature Granulocytes 1.4 % (0-0.5); % Lymphocytes 5.1 % (20.5-51.1); % Monocytes 2.4 % (1.7-9.3); % Neutrophils 90.9 % (42.2-75.2); Absolute Immature Granulocytes 0.1 10^3/uL (0-0.05); Absolute Lymphocytes 0.5 10^3/uL (1.2-3.4); Absolute Monocytes 0.2 10^3/uL (0.1-0.6); Absolute Neutrophils 8.9 10^3/uL (1.4-6.5); Hematocrit 33.3 % (39.0-52.0); Hemoglobin 11.4 g/dL (13.0-18.0); Mean Corp Hgb Conc. 34.2 g/dL (33.0-37.0); Mean Corpuscular Hgb 32.8 pg (27.0-31.0); Mean Corpuscular Volume 95.7 fL (80.0-94.0); Mean Platelet Volume 9.7 fL (7.4-10.4); Nucleated Red Blood Cells % 0 % (-); Platelet Count 233 10^3/uL (130-400); Red Blood Cell Count 3.48 10^6/uL (4.70-6.10); Red Cell Dist. Width 15.9 % (11.5-14.5); White Blood Cell Count 9.7 10^3/uL (4.8-10.8)
[2023-08-29 17:11] LABS: ALT (SGPT) 22 U/L (0-50); AST (SGOT) 29 U/L (17-59); Albumin 3.5 g/dl (3.5-5.0); Alkaline Phosphatase 84 U/L (38-126); Blood Urea Nitrogen 56 mg/dl (9-20); Calcium 8.6 mg/dl (8.4-10.2); Carbon Dioxide 25 mmol/L (22-30); Chloride 101 mmol/L (98-107); Glucose 130 mg/dl (70-99); Potassium 3.9 mmol/L (3.5-5.1); Sodium 136 mmol/L (135-145); Total Bilirubin 1.1 mg/dl (0.2-1.3); Total Protein 5.7 g/dl (6.3-8.2); eGFR 35.54
[2023-08-29 19:21] VITALS: BP 128/73
[2023-08-29 20:00] VITALS: BP 118/57
--- NOTE | 2023-08-29 20:11 | ED.GENMED ---
History of Present Illness
General
Chief Complaint: DVT/Possible Blood Clot
Source: patient, records, spouse and family
Exam Limitations: none
Time Seen by Provider: 08/29/23 19:17
Nursing documentation reviewed up to this point in time: agreed with
Travel History
Have you had any contact with someone who has COVID-19?: No
Do you have any symptoms of coronavirus? Fever > 100 degrees, chills, cough, shortness of breath, sore throat, loss of taste or smell, muscle aches, or headache?: No
History of Present Illness
History of Present Illness:
Patient is an 88-year-old male who presents to the emergency department with a purple foot for the past 5 days. Patient denies any pain but does admit to decreased sensation. Patient has a history of prerenal azotemia. Patient Denies any
palpitations, chest pain, shortness of breath. Patient thought it was his polymyalgia rheumatica but saw the [place] leverman today and was referred to the emergency department. Patient does have a stent in his left anterior descending.
Past History
Past History
ED Past Medical History: Asthma, CAD, COPD, GERD and Other (Osteoarthritis, cataracts, spinal stenosis)
ED Past Surgical History: Orthopedic and Other (Cataracts)
Social History
Tobacco: Non-smoker
Alcohol: None
Drug: None
Personal:
Living: with family
Review of Systems
Review of Systems
All Other Systems: ROS reviewed and negative except as documented in HPI and ROS
Constitutional: Reports no symptoms
EENT: Reports no symptoms
Respiratory: Reports no symptoms
Cardiac: Reports no symptoms
ABD/GI: Reports no symptoms
: Reports no symptoms
Musculoskeletal: Reports edema
Neurological: Reports no symptoms
Hematologic/Lymphatic: Reports other (Right distal foot ecchymotic changes)
Phy Exam
Physical Exam
Physical Exam:
Physical Exam
General: No apparent distress, alert and appropriate, elderly and frail, well hydrated
HENT: Normocephalic, supple with no lymphadenopathy, no thyromegaly
Eyes: Clear sclera, conjuctiva without injection
Heart: Regular rhythm and rate. No S3, S4. No murmur.
Lungs: No respiratory distress, no stridor, lung sounds clear and equal bilaterally
Abdomen: Soft, nontender, BS good
Neuro: Alert and oriented x 3, CN II - XII intact, no motor focality
Skin: no rash
Psychiatric: well kept. interactive and cooperative
Extremities: No tenderness. Cyanotic/ecchymotic changes of the distal foot. Pulses full with Doppler. +2 pitting bilateral pedal and ankle edema
Course
Orders/Labs/Results
Orders:
Orders
08/29/23 Dinner
Regular
08/29/23 16:42
Complete Blood Count/With Diff Urgent
Comprehensive Metabolic Panel Urgent
08/29/23 20:14
PTT Urgent
Prothrombin Time Urgent
08/29/23 20:48
Admit/Transfer Patient As Directed
Co-Sign Provider:
Level of Care: Inpatient admission
Assign to:: Medical/Surgical
Physician / Group: eliot
Diagnosis: ischemic right foot
Reason for Hospitalization: ischemic right foot
Expected length of stay greater than two midnights?: Yes
ELOS- Estimated Length of Stay in days: 2
I certify the patient meets the requirements for IP care: Yes
08/29/23 20:49
Code Status As Directed
Resuscitation Status: Do not resuscitate
Reached after discussion with pt or family/Healthcare POA: Yes
DNR Bracelet Application ONCE
08/29/23 20:53
Vascular Surgery Consult Routine
Consulting Provider: Tl Walker III
Was physician already notified: Yes
08/29/23 20:56
WOUND/OSTOMY CONSULT Routine
Reason for Consult: left lower extremity wound
08/29/23 21:00
0.9% Sodium Chloride 1000 ml [Nss] 1,000 ml IV 80 mls/hr
08/29/23 22:33
Zolpidem Tartrate [Ambien] 5 mg PO HS
08/29/23 22:33
Activity As Directed
Activity Level: As Tolerated
Vital Signs As Directed
Frequency: Per unit guidelines
DX Deep Vein Thrombosis Video Routine
08/30/23 Breakfast
NPO
Allow oral meds: Yes
Allow clear liquids: Sips of Clears
Complete Blood Count/With Diff IN AM
Comprehensive Metabolic Panel IN AM
08/30/23 08:00
Aspirin Low Dose EC [Aspir Low (Enteric Coated)] 81 mg PO DAILY
Budesonide/Formoterol 160/4.5 [Symbicort 160/4.5 Mcg Inhaler] 2 puff INH R BID
Heparin 5,000 units SC Q12
Magnesium Oxide 500 mg PO DAILY
Pantoprazole [Protonix] 40 mg PO DAILY
Prednisone [Deltasone] 40 mg PO DAILY
Prednisone [Deltasone] 5 mg PO DAILY
Vit C/Vit E/Lutein/Min/[place]-3 [Ocuvite Softgel] 1 cap PO DAILY
Abnormal Lab Results
08/29/23
16:42
RBC 3.48 L 10^6/uL
(4.70-6.10)
Hgb 11.4 L g/dL
(13.0-18.0)
Hct 33.3 L %
(39.0-52.0)
MCV 95.7 H fL
(80.0-94.0)
MCH 32.8 H pg
(27.0-31.0)
RDW 15.9 H %
(11.5-14.5)
Abs Immat Gran (auto) 0.1 H 10^3/uL
(0-0.05)
Absolute Neuts (auto) 8.9 H 10^3/uL
(1.4-6.5)
Absolute Lymphs (auto) 0.5 L 10^3/uL
(1.2-3.4)
Immature Gran % 1.4 H %
(0-0.5)
Neutrophils % 90.9 H %
(42.2-75.2)
Lymphocytes % 5.1 L %
(20.5-51.1)
BUN 56 H mg/dl
(9-20)
Creatinine 1.8 H mg/dL
(0.7-1.3)
Glucose 130 H mg/dl
(70-99)
Total Protein 5.7 L g/dl
(6.3-8.2)
08/29/23 16:42
08/29/23 16:42
Vital Signs
Initial and Last Documented VS:
Initial Vital Signs
Temp Pulse Resp BP Pulse Ox
98.0 F 64 18 116/67 100
08/29/23 16:31 08/29/23 16:31 08/29/23 16:31 08/29/23 16:31 08/29/23 16:31
Last Documented Vital Signs
Temp Pulse Resp BP Pulse Ox
98.3 F 70 16 107/57 98
08/29/23 22:00 08/29/23 22:00 08/29/23 22:00 08/29/23 22:00 08/29/23 22:00
*Radiology
Radiology exam reviewed: other (na)
*Pulse Oximetry
Patient hypoxic: no
*EKG
Interpreted by ED Provider?: NA
*Regional Guide Interpretation
Rate: Regional Guide- N/A
*Critical Care Note
Total Time (30-74mins, 75-104mins- exclusive of procedures): Not Applicable
ED Attending Note
-
Portions of this chart may have been created with voice recognition software.� Occasional wrong word or��sound alike� substitutions may have occurred due to the inherent limitations of voice recognition software.
Discharge Plan
Departure
Patient Disposition: Admit
Date of Disposition: 08/29/23
Time of Disposition: 20:23
Admit to: Telemetry
Admit to doctor: Hospitalist
Presentation/result/management discussed w/ accepting MD/DO: Vascular surgery
Condition: Fair
Covid-19: Not Applicable
Discharge Problem:
Ischemic right foot
Interventions
Interventions:
*Risk Screen - Suicide Last Done: 08/29/23 19:37
*General Assessment Last Done: 08/29/23 19:37
*Neglect/Abuse Screening Last Done: 08/29/23 19:37
ED- Fall Risk Assessment Last Done: 08/29/23 19:37
*ED COVID-19 Vaccine History Last Done: 08/29/23 16:33
ED- Cardiac Assessment Last Done: 08/29/23 19:37
ED- Pulmonary Assessment Last Done: 08/29/23 19:37
ED-Peripheral Vascular Assessment Last Done: 08/29/23 19:40
ED-Skin Assessment Last Done: 08/29/23 19:37
[2023-08-29 20:29] LABS: INR 1.07; PT 13.7 Sec (11.4-14.6)
--- NOTE | 2023-08-29 20:54 | HPS.HSE ---
Family Physician
-
Family Physician: Primo Blanton
Chief Complaint
-
right foot discoloration
History of Present Illness
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
osteoarthritis, presenting with purple foot for the past 5 days. He denies pain but has decreased sensation of the toes. He denies any palpitations, chest pain or shortness of breath. Patient saw his pediatric medical assistant today and was referred to the
emergency room.
Denies any chest pain or shortness of breath or fevers or chills.
He drinks alcohol occasionally. Denies smoking.
Medical History
Past Medical History
Past Medical History: Reports Other (CAD status post stent, chronic venous insufficiency, hypertension, hyperlipidemia, COPD, GERD, polymyalgia rheumatica, CKD 3B, right hip replacement, spinal stenosis, osteoarthritis)
Past Surgical History: Reports None
Social History
Tobacco: Non-smoker
Alcohol: Occasional
Drug: None
Family History
Family History: Not pertinent
Allergies / Home Medications
Allergies reflects when Allergies were last updated in [employer].
Home Medications with original date entered in [employer]
Allergy/Medication List:
Allergies
Allergy/AdvReac Type Severity Reaction Status Date / Time
tetracycline Allergy eruption Verified 08/29/23 16:35
of penis
Home Medications
pantoprazole 40 mg tablet,delayed release 40 mg PO DAILY Gastrointestinal issue 01/30/19
magnesium oxide 400 mg PO DAILY Supplement 02/03/21
aspirin 81 mg tablet,delayed release 81 mg PO DAILY Heart disease/condition 04/15/21
potassium chloride 8 mEq tablet,extended release 8 meq PO Q48H Supplement 04/15/21
coenzyme Q10 100 mg capsule (Co Q-10) 100 mg PO DAILY Supplement 06/24/23
fluticasone furoate 100 mcg-vilanterol 25 mcg/dose inhalation powder (Breo Ellipta) 1 inh inhalation R DAILY Lung/Breathing Issues 06/24/23
furosemide 20 mg tablet 20 mg PO Q48H Fluid Retention/Swelling 06/24/23
furosemide 40 mg tablet 40 mg PO Q48H Fluid Retention/Swelling 06/24/23
prednisone 5 mg tablet 5 mg PO DAILY INFLAMMATION 06/24/23
vitamins A,C,K-juyf-isklrz 4,296 mcg-226 mg-90 mg capsule (PreserVision AREDS) 1 cap PO DAILY Supplement 06/24/23
zolpidem 5 mg tablet (Ambien) 5 mg PO HS Sleep 06/24/23
prednisone 10 mg tablet 40 mg PO DAILY 08/29/23
Review of Systems
-
History Source: Patient
A 12 point ROS was completed and negative except as noted: Yes
Constitutional: Reports No Symptoms
EENT: Reports No Symptoms
Respiratory: Reports No Symptoms
Cardiac: Reports No Symptoms
Abdomen/GI: Reports No Symptoms
: Reports No Symptoms
Musculoskeletal: Reports No Symptoms
Skin: Reports No Symptoms
Neurological: Reports No Symptoms
Endocrine: Reports No Symptoms
Hematologic/Lymphatic: Reports No Symptoms
Psych: Reports No Symptoms
Physical Exam
Vital Signs
Vital Signs
Temp Pulse Resp BP Pulse Ox
98.0 F 64 18 118/57 99
08/29/23 16:31 08/29/23 16:31 08/29/23 16:31 08/29/23 20:00 08/29/23 20:15
Physical Exam
General: Well Developed, Well Nourished and No Apparent Distress
HEENT: NormoCephalic, Moist mucous membranes and Atraumatic
Respiratory: Clear
Cardiac: S1/S2 and Regular Rhythm; No Murmur or Rub
GI: Soft, Non Tender, Non Distended and Normal Bowel Sounds; No Organomegaly
Rectal: Deferred by Provider
Musculoskeletal: No Clubbing, No Cyanosis and No Edema
Skin: No Rash
Neuro: Nonfocal/grossly intact
Laboratory Results
-
08/29/23 16:42
08/29/23 16:42
Laboratory Results
PT 13.7 Sec (11.4-14.6) 08/29/23 20:14
INR 1.07 08/29/23 20:14
APTT 25.0 Sec (23.4-35.0) 08/29/23 20:14
Total Bilirubin 1.1 mg/dl (0.2-1.3) 08/29/23 16:42
AST 29 U/L (17-59) 08/29/23 16:42
ALT 22 U/L (0-50) 08/29/23 16:42
Alkaline Phosphatase 84 U/L (38-126) 08/29/23 16:42
Data Reviewed
-
Lab Data: Labs Reviewed by me
Old Records: Reviewed
Impression/Plan
-
IMPRESSION:
PLAN:
# Cyanotic/ecchymotic right foot concerning for ischemia
-Vascular recommended against heparin drip for now given patient with intact Doppler flow
-Patient to have angiogram tomorrow
-N.p.o. past midnight
#History of chronic venous insufficiency
-Hold Lasix
-Hold potassium
#Chronic left calf wound
-Small in size, does not appear infected
-Wound care
#Chronic kidney disease 3B
-Renal function baseline
-IV fluids
Coronary artery disease status post stent
-Continue aspirin
Essential hypertension
Hyperlipidemia
-Continue statin
COPD
-Continue inhalers
GERD
-Continue Protonix
Polymyalgia rheumatica
-Continue prednisone
Spinal stenosis/osteoarthritis
Chronic anemia
-Hemoglobin stable
DNR/DNI
DVT prophylaxis-heparin
N.p.o. past midnight
[2023-08-29 21:00] VITALS: BP 104/79
[2023-08-29] MEDS: NSS 1000 IV (21:23)
[2023-08-29 22:00] VITALS: BP 107/57
[2023-08-29] MEDS: AMBIEN 5 MG PO (23:18)
--- NOTE | 2023-08-30 03:00 | EDRN ---
Report received, patient resting comfortably
[2023-08-30 04:08] VITALS: BP 120/65
--- NOTE | 2023-08-30 04:08 | EDRN ---
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
--- NOTE | 2023-08-30 06:07 | EDRN ---
Patient stood to urinate, helped patient turn on lights in room and tv and resting comfortably with no complaints
[2023-08-30 06:23] LABS: % Basophils 0.3 % (0-2); % Eosinophils 1.5 % (0-6); % Immature Granulocytes 1.3 % (0-0.5); % Lymphocytes 7.1 % (20.5-51.1); % Monocytes 4.9 % (1.7-9.3); % Neutrophils 84.9 % (42.2-75.2); Absolute Eosinophils 0.2 10^3/uL (0-0.7); Absolute Immature Granulocytes 0.1 10^3/uL (0-0.05); Absolute Lymphocytes 0.8 10^3/uL (1.2-3.4); Absolute Monocytes 0.5 10^3/uL (0.1-0.6); Absolute Neutrophils 9.3 10^3/uL (1.4-6.5); Hematocrit 33.7 % (39.0-52.0); Hemoglobin 11.5 g/dL (13.0-18.0); Mean Corp Hgb Conc. 34.1 g/dL (33.0-37.0); Mean Corpuscular Hgb 33.1 pg (27.0-31.0); Mean Corpuscular Volume 97.1 fL (80.0-94.0); Mean Platelet Volume 10.1 fL (7.4-10.4); Nucleated Red Blood Cells % 0 % (-); Platelet Count 224 10^3/uL (130-400); Red Blood Cell Count 3.47 10^6/uL (4.70-6.10); Red Cell Dist. Width 16.2 % (11.5-14.5)
[2023-08-30 06:25] LABS: ALT (SGPT) 20 U/L (0-50); AST (SGOT) 29 U/L (17-59); Albumin 3.1 g/dl (3.5-5.0); Alkaline Phosphatase 74 U/L (38-126); Blood Urea Nitrogen 54 mg/dl (9-20); Calcium 8.3 mg/dl (8.4-10.2); Carbon Dioxide 28 mmol/L (22-30); Chloride 103 mmol/L (98-107); Estimated Creatinine Clearance 35 ml/min; Glucose 100 mg/dl (70-99); Potassium 3.6 mmol/L (3.5-5.1); Sodium 136 mmol/L (135-145); Total Protein 5.3 g/dl (6.3-8.2); eGFR 44.23
[2023-08-30 07:16] VITALS: BP 127/72
[2023-08-30] MEDS: DELTASONE 40 MG PO (09:26)
[2023-08-30] MEDS: ASPIR LOW (ENTERIC COATED) 81 MG PO (09:26)
[2023-08-30] MEDS: DELTASONE 5 MG PO (09:26)
[2023-08-30] MEDS: MAGNESIUM OXIDE 500 MG PO (09:27)
[2023-08-30] MEDS: PROTONIX 40 MG PO (09:27)
[2023-08-30] MEDS: OCUVITE SOFTGEL 1 CAP PO (09:30)
[2023-08-30] MEDS: HEPARIN 5000 UNITS SC (09:30)
--- NOTE | 2023-08-30 11:04 | CON.VAS ---
Addendum entered and electronically signed by Tl Walker III, MD 08/30/23 13:05:
This patient was seen and examined with BERNIE Martin in the emergency room. I agree with the history and physical exam as well as the assessment and plan. I have the following additions:
Spontaneous onset of right foot discoloration
No precipitating events
No trauma
No pain
No wounds
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
No history of PAD
Chronic bilat LE edema
On exam he is comfortable appearing
Non toxic
Alert/oriented
Sig pitting edema of legs/feet bilat
Dark skin discoloration of bilat legs
No wounds bilat
Palp pop pulses
Palp DP's bilaterally once edema has been pushed aside
Purple discoloration of mid/forefoot on the right
Has the appearance of bruising
Not gangrenous or necrotic
No skin breakdown
Non tender
Gross motor/sensation intact right foot
Studies reviewed:
Normal ankle-brachial indices and toe brachial indices. No signs of significant
aortoiliac inflow disease or flow limiting lower extremity arterial stenosis.
From the history, physical exam and imaging results, I do not get the sense that the right foot discoloration is secondary to an acute arterial occlusive issue. It also doesn't appear to be a thrombo/athero-embolic issue as his foot/toes are not
painful and there is no skin breakdown. For now continue with supportive care.
Call with questions/concerns
Signed:
Tl Walker III, MD
[facility] Vascular Surgery
[phone] (drjc)
Original Note:
Consultation
Consultation Request
Date/Time Consultation Performed: 08/30/23 1100
Requesting Provider: Hospitalist
Performing Provider: Savanna Gordon, TIRE MAINTENANCE TECHNICIAN-C for Tl Walker III, MD
Reason for Consultation: Right foot painless discoloration
Medical History
-
Chief Complaint: Right foot pain less discoloration
History of Present Illness:
This is an 88-year-old male with significant past medical history of CAD status post stent, chronic venous insufficiency, hypertension, hyperlipidemia, COPD, GERD, polymyalgia rheumatica, CKD 3B, right hip replacement, spinal stenosis, and
osteoarthritis who presented to [facility] on 08/29/2023 reporting acute onset of painless discoloration of right foot. Patient endorsees that roughly five days ago he noticed acute onset of 'purple/blue' discoloration of right foot. He denies
precipitating trauma, pain, fever, chills, nausea, vomiting, or open wounds. He endorses intact sensation and motor function, although does note intermittent decreased sensation at digits. Currently, reports intact sensation. He denies any
palpitations, chest pain or shortness of breath. Denies history of vascular intervention or surgery. Denies rest pain, reports he is comfortable and feels at baseline health. Patient presented to ED at recommendation of raw mill operator.
Past Medical History
Past Medical History: CAD (PCI), COPD, GERD, HTN and Other (Chronic venous insufficiency, hyperlipidemia, polymyalgia rheumatica, CKD stage 3B, spinal stenosis, osteoarthritis)
Past Surgical History: Orthopedic (right hip replacement,) and Other (Cataract surgery, Skin grafting)
Social History
Tobacco: Non-Smoker
Alcohol: Occasional
Drug: None
Allergies / Home Medications
Allergy/AdvReac Type Severity Reaction Status Date / Time
tetracycline Allergy eruption Verified 08/29/23 16:35
of penis
�Medication �Instructions �Recorded �Confirmed �Type
pantoprazole 40 mg tablet,delayed 40 mg PO DAILY Gastrointestinal 01/30/19 08/29/23 History
release issue
magnesium oxide 400 mg PO DAILY Supplement 02/03/21 08/29/23 History
aspirin 81 mg tablet,delayed 81 mg PO DAILY Heart 04/15/21 08/29/23 History
release disease/condition
potassium chloride 8 mEq 8 meq PO Q48H Supplement 04/15/21 08/29/23 History
tablet,extended release
coenzyme Q10 100 mg capsule (Co 100 mg PO DAILY Supplement 06/24/23 08/29/23 History
Q-10)
fluticasone furoate 100 1 inh inhalation R DAILY 06/24/23 08/29/23 History
mcg-vilanterol 25 mcg/dose Lung/Breathing Issues
inhalation powder (Breo Ellipta)
furosemide 20 mg tablet 20 mg PO Q48H Fluid 06/24/23 08/29/23 History
Retention/Swelling
furosemide 40 mg tablet 40 mg PO Q48H Fluid 06/24/23 08/29/23 History
Retention/Swelling
prednisone 5 mg tablet 5 mg PO DAILY INFLAMMATION 06/24/23 08/29/23 History
vitamins A,C,G-ldut-euxluz 4,296 1 cap PO DAILY Supplement 06/24/23 08/29/23 History
mcg-226 mg-90 mg capsule
(PreserVision AREDS)
zolpidem 5 mg tablet (Ambien) 5 mg PO HS Sleep 06/24/23 08/29/23 History
prednisone 10 mg tablet 40 mg PO DAILY inflammation 08/29/23 08/29/23 History
Review of Systems
-
History Source: Patient
Constitutional: Reports No Symptoms
EENT: Reports No Symptoms
Respiratory: Reports No Symptoms
Cardiac: Reports No Symptoms
Vascular: Denies Leg Pain / Claudication, Numbness or Tingling
Abdomen/GI: Reports No Symptoms
: Reports No Symptoms
Musculoskeletal: Reports Edema (Chronic bilateral lower extremity edema)
Skin: Reports Other (Discoloration of dorsum of right foot and all 5 digits)
Neurological: Reports No Symptoms
Physical Exam
Vital Signs
Temp Pulse Resp BP Pulse Ox
98.3 F 71 16 127/72 99
08/29/23 22:00 08/30/23 07:16 08/30/23 07:16 08/30/23 07:16 08/30/23 07:16
Lab Results
08/30/23 06:00
08/30/23 06:00
Physical Exam
General: No Apparent Distress and Comfortable
HEENT: Normocephalic, Anicteric and Atraumatic
Cardiac: Negative JVD
GI: Soft, Non Tender and Non Distended
Musculoskeletal: Edema (Bilateral, symmetrical, +2 pitting edema)
Skin: Warm and Dry
Neuro: AO x 3
Pulses: Bilateral Dorsalis Pedis: +2 and Bilateral Posterior Tibial: +1
Assessment / Plan
-
Assessment: 88-year-old male presents to [facility] ED by recommendation of raw mill operator for painless blue discoloration of dorsum of right foot into digits
Plan:
Obtained non-invasive arterial US with TARI/TBI, ultrasounds does not indicate flow limiting disease or significant stenosis, TARI/TBI are normal, additionally physical exam of palpable distal pulses also support that patient does not have peripheral
arterial disease.
Suspect discoloration related to his venous congestion/insufficiency
Do not recommend surgical intervention
I performed this shared service with the attending. I evaluated the patient [id number] and have entered clinical documentation as shown in the encounter note. I performed the following component(s): history and physical exam. Note that medical
decision making is not final until attested by vascular attending.
Data Reviewed
-
Ultrasound: Report Reviewed by me, Discussed with Physician and Discussed with Patient
Labs: Labs Reviewed by me and Discussed with Physician
--- NOTE | 2023-08-30 11:25 | WOUNDNOTE ---
IMELDA RN note: Patient admitted with R foot ischemic. Patient lives with his . 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
See H&P for complete history.
PMH: asthma, CAD, COPD, spinal stenosis, R THR 02/23/21, R forearm basal skin cancer removal last week by Dr. Norman (sutures to be removed at Dr. Norman's office next week).
Wound Location and type/assessment: Patient admitted with skin tear to L arm. R arm edema, elbow abrasion and weeping large amts of serous drainage. R dorsal toes purple discoloration, toes cool, arterial studies normal results, vascular following.
Heels are blanchable red, boggy. Sacrum is barely blanchable red, able to turn self in bed.
Appetite: Patient states his appetite recently has been poor.
Pressure redistribution devices in place: ED stretcher with air chair cushion on pillow under calves. spoke to nurse Willis that patient should be on [facility] air bed when goes to floor. Bed tech extension given for nurse to call.
Plan: protective silicone border foam applied to sacrum. R arm dressing changed alginate, abd pad and kerlix. L arm applied silicone foam. Called [facility] for adhesive foams to be applied to heels, nurse will apply.
Will confirm orders with hospitalist. Care plan to be updated and will follow as needed.
Note to case management requested for discharge: VN services if patient wants.
Patient to follow up with vascular.
--- NOTE | 2023-08-30 12:50 | W.DS.TRANS ---
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
-
Discharge Instructions:
Discharge Diagnosis/Procedures Rt forefoot and toes discoloration suspect sec
to skin purpura from [facility] steroid use ;no
PAD.
Diet 2 Gram Sodium
Activity As tolerated
Driving Restrictions As prior to admission
Bathing Restrictions None
Instructions:
Stand-Alone Forms:
Changes to Home Medications: No
Discharge Medications:
DC Medications w/original date entered in [facility]
pantoprazole 40 mg tablet,delayed release 40 mg PO DAILY Gastrointestinal issue 01/30/19
magnesium oxide 400 mg PO DAILY Supplement 02/03/21
aspirin 81 mg tablet,delayed release 81 mg PO DAILY Heart disease/condition 04/15/21
potassium chloride 8 mEq tablet,extended release 8 meq PO Q48H Supplement 04/15/21
coenzyme Q10 100 mg capsule (Co Q-10) 100 mg PO DAILY Supplement 06/24/23
fluticasone furoate 100 mcg-vilanterol 25 mcg/dose inhalation powder (Breo Ellipta) 1 inh inhalation R DAILY Lung/Breathing Issues 06/24/23
furosemide 20 mg tablet 20 mg PO Q48H Fluid Retention/Swelling 06/24/23
furosemide 40 mg tablet 40 mg PO Q48H Fluid Retention/Swelling 06/24/23
prednisone 5 mg tablet 5 mg PO DAILY INFLAMMATION 06/24/23
vitamins A,C,R-jlez-lcrbvj 4,296 mcg-226 mg-90 mg capsule (PreserVision AREDS) 1 cap PO DAILY Supplement 06/24/23
zolpidem 5 mg tablet (Ambien) 5 mg PO HS Sleep 06/24/23
prednisone 10 mg tablet 40 mg PO DAILY inflammation 08/29/23
Home Medication Changes
Pending Results: No
--- NOTE | 2023-08-30 12:51 | W.PN.HOSP.TC ---
Today's Communication/Plan
-
DC
Assessment / Plan
Assessment / Plan
#Right foot and toes dark discoloration
-Patient without any symptoms going against ischemia.
- Arterial US shows no PAD
-No trauma involved but I suspect this is skin purpura from fragile skin due to long-term steroid use. His evidence of that in upper extremities too. No further evaluation needed.
#History of chronic venous insufficiency
-cw meds/diuretics
#Chronic left calf wound
-Small in size, does not appear infected
-cw Wound care
#Chronic kidney disease 3B
-Renal function baseline
Coronary artery disease status post stent
-Continue aspirin
Essential hypertension
Hyperlipidemia
-Continue statin
COPD
-Continue inhalers
GERD
-Continue Protonix
Polymyalgia rheumatica
-Continue prednisone
Spinal stenosis/osteoarthritis
Chronic anemia
-Hemoglobin stable
Medially stable for DC
Anticipated Discharge: Today
Subjective/Interval History
-
Date of Service: August 30, 2023
Right toes remains discolored. No pain, sensory disturbance. No new issues.
He gets skin bruising easily because of steroid use.
Objective Data
-
Labs:
Laboratory Results
08/30/23
06:00
WBC 11.0 H
Hgb 11.5 L
Hct 33.7 L
Plt Count 224
Sodium 136
Potassium 3.6
Chloride 103
Carbon Dioxide 28
BUN 54 H
Creatinine 1.5 H
Glucose 100 H
Calcium 8.3 L
Total Bilirubin 1.0
AST 29
ALT 20
Alkaline Phosphatase 74
Vital Signs:
Vital Signs
Temp Pulse Resp BP Pulse Ox
98.3 F 71 16 127/72 99
08/29/23 22:00 08/30/23 07:16 08/30/23 07:16 08/30/23 07:16 08/30/23 07:16
I&O
08/29/23 08/30/23 08/31/23
06:59 06:59 06:59
Output Total 425 / 425
Balance -425 / -425
Review of Systems
-
Constitutional: Denies Fever
Respiratory: Denies Trouble Breathing
Cardiac: Denies Chest Pain
Abdomen/GI: Denies Abdominal Pain, Nausea or Vomiting
Neuro: Denies Dizzy
Physical Exam
-
General: No Apparent Distress
HEENT: Moist Mucous Membranes
Respiratory: Clear to Auscultation
Cardiac: Regular Rhythm and S1/S2
GI: Soft
Musculoskeletal: Edema, Right Lower Extrem and Edema, Left Lower Extrem (chronic ;no worse per pt ; BL)
Skin: Other (Dark disoloriation of rt medial toes and distal medial forefoot. No redness or tenderness. Skin purpura in UE noted)
Neuro: AO x 3
Psych: Calm
Data Reviewed
-
Ultrasound: Report Reviewed by me (arterial US noted)
--- NOTE | 2023-08-30 13:13 | CM ---
CM met with patient and in room. Patient is independent at home and declining home care. CM will continue to follow as needed.
[2023-08-30 13:53] VITALS: BP 104/59
--- NOTE | 2023-09-01 16:28 | W.DCSUMMARY ---
Discharge Summary
Discharge Data
Date of Admission: 08/29/23
Date of Discharge: 08/30/23
-
Pending Results: No
Hospital Course
Primary diagnosis:
Right foot/toe dark discoloration suspected secondary to skin purpura from fragile skin from long-term steroid use. No evidence of PAD.
Secondary diagnosis:
Chronic venous insufficiency
Chronic disease stage IIIb
Coronary disease s/p prior coronary stents
Essential hypertension
Hyperlipidemia
Chronic obstructive pulmonary disease
Polymyalgia rheumatica on steroids
Hospital course:
Patient was visiting his check weigher and was noted to have right foot and 3 toes dark vascularization so sent him to the ER. He was seen by vascular surgery and had a PAD evaluation with arterial ultrasound which was normal. It was felt
probably it was skin purpura from fragile skin from long-term steroid use or capillary issue from chronic venous insufficiency
Consultants on board:
Vascular-Tl Montiel
Discharge Plan
-
Patient Disposition: Home (Routine Discharge)
Discharge Diagnosis/Procedures: Rt forefoot and toes discoloration suspect sec to skin purpura from watermaster steroid use ;no PAD.
Diet: 2 Gram Sodium
Activity: As tolerated
Driving Restrictions: As prior to admission
Bathing Restrictions: None
Activity Restrictions/Additional Instructions:
Wound Care Instructions
R arm: clean with soap and water, alginate, abd pad and kerlix daily and as needed for drainage.
L arm: clean with soap and water, dry dressing, change q other day and prn drainage.
foam to sacrum to protect, air cushion when sitting can take home upon discharge
Follow up at wound care center as needed, call for an appointment.
Referrals:
Primo Blanton MD [Family Provider] - in less than 1 week
Prescriptions:
Continued
aspirin 81 MG tablet,delayed release (DR/EC)
81 mg PO DAILY
prednisone 5 mg tablet
5 mg PO DAILY
Rx Instructions:
08/31/2023, take with 40 mg for a total of 45 mg.
furosemide 20 mg tablet
20 mg PO Q48H@0800
coenzyme Q10 [Co Q-10] 100 mg Capsule
100 mg PO DAILY
PreserVision AREDS 4,296 mcg-226 mg-90 mg Capsule
2 cap PO DAILY
fluticasone furoate-vilanterol [Breo Ellipta] 100-25 mcg/dose blister with device
1 inh INHALATION R DAILY
furosemide 40 MG tablet
40 mg PO Q48H@0800
Patient Comments:
08/31/2023, per pt., he takes this med. with his potassium chloride ER 8 meq capsule Q48H@0800.
zolpidem [Ambien] 5 mg Tablet
5 mg PO HS
prednisone 10 mg tablet
40 mg PO DAILY
Rx Instructions:
08/31/2023, take with 5 mg for a total of 45 mg.
No Action
potassium chloride 8 mEq Capsule, Extended Release
8 meq PO Q48H@0800
Patient Comments:
08/31/2023, per pt., he takes this med. with his furosemide 40 mg tablet Q48H@0800.
Discharge Orders:
Discharge Patient (As Directed); Ordered 08/30/23
Ordered By: Camilo Domínguez
Discharge Date and Time
Discharge Date/Time: 08/30/23 14:08
Print Language: GEORGIAN
== END 2023-08-30 14:08 | disposition home or self-care (01) | DRG 813 ==
LOC: ED 21:19
PROVIDERS: Emergency Medicine; ADMITTING PHYSICIAN Hospitalist; ATTENDING PHYSICIAN Internal Medicine; CONSULT PHYSICIAN Surgery Vascular Surgery; EMERGENCY PHYSICIAN Emergency Medicine; FAMILY PHYSICIAN Internal Medicine
DX: D69.0 Allergic purpura (principal); D69.2 Other nonthrombocytopenic purpura; I25.10 Atherosclerotic heart disease of native coronary artery without angina pectoris; K21.9 Gastro-esophageal reflux disease without esophagitis; M19.90 Unspecified osteoarthritis, unspecified site; M48.00 Spinal stenosis, site unspecified; J44.89 Other specified chronic obstructive pulmonary disease; T38.0X5A Adverse effect of glucocorticoids and synthetic analogues, initial encounter; Y92.9 Unspecified place or not applicable; M35.3 Polymyalgia rheumatica; N18.32 Chronic kidney disease, stage 3b; I12.9 Hypertensive chronic kidney disease with stage 1 through stage 4 chronic kidney disease, or unspecified chronic kidney disease; D64.9 Anemia, unspecified; E78.5 Hyperlipidemia, unspecified; I87.2 Venous insufficiency (chronic) (peripheral); Z66 Do not resuscitate; Z88.1 Allergy status to other antibiotic agents; Z79.82 Long term (current) use of aspirin; Z79.51 Long term (current) use of inhaled steroids; Z79.52 Long term (current) use of systemic steroids; Z96.641 Presence of right artificial hip joint; Z95.5 Presence of coronary angioplasty implant and graft
CPT/HCPCS: 80053; 85025; 85610; 85730; 93922; 93925; 99285

== ENCOUNTER 2023-08-31 15:45 | Inpatient (IN) | payer MEDICARE, OTHER, SELFPAY ==
[2023-08-31] VITALS (16 sets, daily range): BP systolic 97–124; BP diastolic 49–70; BMI 23.4; BMI 22.2
--- NOTE | 2023-08-31 14:11 | ED.GENMED ---
History of Present Illness
General
Chief Complaint: Cardiac Symptoms
Source: patient and ambulance crew
Exam Limitations: none
Time Seen by Provider: 08/31/23 13:46
Nursing documentation reviewed up to this point in time: agreed with
Travel History
Have you had any contact with someone who has COVID-19?: No
Do you have any symptoms of coronavirus? Fever > 100 degrees, chills, cough, shortness of breath, sore throat, loss of taste or smell, muscle aches, or headache?: No
History of Present Illness
History of Present Illness:
88-year-old male with a past medical history of asthma/COPD, hyperlipidemia, CAD, GERD who presents to the emergency department for evaluation after syncopal event. 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 Patient lives at home with
his . He says he was standing in the kitchen around noon (1 hour prior to arrival) and suddenly lost consciousness. He says he had no prodrome of dizziness/lightheadedness, did not have any chest pain or dyspnea. He did fall and strike his
head and sustained multiple skin tears to the back and upper extremities. He complains of continued dizziness but denies any other specific complaints and denies any significant injuries. Denies headache. Denies neck pain. Denies any chest or
abdominal pain. Denies any pain in his extremities. He has chronic lymphedema; no worse than usual. Per EMS he did have significant bradycardia on the way to the hospital. He was given atropine [address] to the hospital. Patient is not on
beta-blockers or calcium channel blockers. He sees Dr. Dominguez for cardiology.
Past History
Past History
ED Past Medical History: Asthma, CAD, COPD, GERD and Other (Osteoarthritis, cataracts, spinal stenosis)
ED Past Surgical History: Orthopedic and Other (Cataracts)
Social History
Tobacco: Non-smoker
Alcohol: None
Drug: None
Personal:
Living: with family
Review of Systems
Review of Systems
All Other Systems: ROS reviewed and negative except as documented in HPI and ROS
Constitutional: Denies fever
Respiratory: Denies cough or trouble breathing
Cardiac: Reports syncope; Denies chest pain or palpitations
ABD/GI: Denies abdominal pain, nausea or vomiting
: Denies flank pain
Musculoskeletal: Denies neck pain or back pain
Neurological: Reports dizzy; Denies headache, weakness or numbness
Phy Exam
Physical Exam
Physical Exam:
General: Awake, alert, oriented x3
Head: Normocephalic, patient has abrasion to the crown of his head with some surrounding ecchymosis no scalp laceration
Eyes: Conjunctiva normal, EOMI, pupils equal round reactive to light bilaterally
Throat: Airway intact, handling secretions
Neck: Trachea midline, supple without meningismus, no cervical spine tenderness
Back: Patient has multiple large skin tears/abrasions to the upper and mid back; no tenderness in the thoracic or lumbar spine
Lungs: Clear to auscultation bilaterally, no wheezing, rales, rhonchi
Heart: Bradycardia with irregular rhythm, no murmurs, gallops, or rubs
Abd: Soft, non distended, nontender
Neuro: No gross deficits
Skin: no rash
Extremities: Bilateral +2 edema in the legs with chronic venous stasis changes; he has very skin tears on his extremities and ecchymosis/bruises of varying age; he has no reproducible tenderness in his extremities and moves them all through good
active range of motion without significant discomfort
Scores
Heart Failure Risk
Heart Failure Risk Score: Not Applicable
Heart Score for Chest Pain Patients
STEMI patient?: Not applicable
Withdrawal Assessment of Alcohol
Withdrawal Assessment Completed?: Not applicable
Course
Orders/Labs/Results
Orders:
Orders
08/31/23 13:25
Electrocardiogram (*1) Urgent
Reason for Study: Chest Pain
Cardiac Monitoring- Treatment ONCE
EKG- Treatment ONCE
IV Insert/Care/Rem.- Treatment PRN
O2 Therapy [RESP] Urgent
Titrate/Wean O2 to maintain O2 sat greater than (%): 90
Special Instructions: Maintain sats >/=90%
Pulse Ox/spot Check [RESP] Urgent
Quantity: 1
Special Instructions: ON ROOM AIR
08/31/23 13:28
Complete Blood Count/With Diff Urgent
Comprehensive Metabolic Panel Urgent
Prothrombin Time Urgent
Troponin I Urgent
08/31/23 13:52
CT Cervical Spine W/o Iv Contr Urgent
Comment:
Reason For Exam: syncope and collapse with head trauma
CT Head W/o Iv Contrast Urgent
Comment:
Reason For Exam: syncope and collapse, head trauma
08/31/23 13:55
TSH Reflex To Free T4 Urgent
08/31/23 14:14
CR Chest Portable - 1 View Urgent
Comment:
Reason For Exam: syncope
Reason Study Needs to be Portable: Unable to Transport
08/31/23 14:43
Echo Follow-up Study Stat
Reason for Study: LVEF assessment
08/31/23 14:45
DOPamine INF (STD CONC) CONTINUOUS DOPamine 400 MG/D5W 250 ML [DOPamine 400 MG] 400 mg in 250 ml IV PER PROTOCOL
Initial dose in mcg/kg/min, then titrate:: 2
Titrate to keep:: Heart Rate
Keep Heart Rate (bpm) greater than:: 45
Titrate by mcg/kg/min:: 1-2 mcg/kg/min
Frequency of titrations (minutes):: 15
Maximum dose in ICU in mcg/kg/min:: 20
Maximum dose in IMU in mcg/kg/min:: 10
Begin to taper infusion when:: Remained at goal for 4hrs
Taper by mcg/kg/min:: 1-2 mcg/kg/min
Frequency of taper (minutes) if patient maintains goal:: 30
Taper to off?: Yes
If infusion off & no longer maintaining goal:: Contact Provider
Abnormal Lab Results
08/31/23
13:28
WBC 11.5 H 10^3/uL
(4.8-10.8)
RBC 3.57 L 10^6/uL
(4.70-6.10)
Hgb 11.7 L g/dL
(13.0-18.0)
Hct 35.7 L %
(39.0-52.0)
MCV 100.0 H fL
(80.0-94.0)
MCH 32.8 H pg
(27.0-31.0)
MCHC 32.8 L g/dL
(33.0-37.0)
RDW 16.3 H %
(11.5-14.5)
Abs Immat Gran (auto) 0.2 H 10^3/uL
(0-0.05)
Absolute Neuts (auto) 10.5 H 10^3/uL
(1.4-6.5)
Absolute Lymphs (auto) 0.4 L 10^3/uL
(1.2-3.4)
Immature Gran % 1.7 H %
(0-0.5)
Neutrophils % 90.9 H %
(42.2-75.2)
Lymphocytes % 3.4 L %
(20.5-51.1)
Sodium 133 L mmol/L
(135-145)
BUN 51 H mg/dl
(9-20)
Creatinine 1.6 H mg/dL
(0.7-1.3)
Glucose 129 H mg/dl
(70-99)
Calcium 7.8 L mg/dl
(8.4-10.2)
Troponin I 0.836 H* ng/ml
Total Protein 5.1 L g/dl
(6.3-8.2)
Albumin 2.9 L g/dl
(3.5-5.0)
08/31/23 13:28
08/31/23 13:28
Vital Signs
Initial and Last Documented VS:
Initial Vital Signs
Pulse Ox
97
08/31/23 13:29
Last Documented Vital Signs
Temp Pulse Resp BP Pulse Ox
36.4 C 68 12 115/70 76
08/31/23 13:30 08/31/23 14:15 08/31/23 14:15 08/31/23 14:37 08/31/23 14:37
MDM/Problems Addressed
Differential Diagnosis Includes:
Heart block
MDM/Problems Addressed:
88-year-old male presents for evaluation after drop syncope; has had persistent dizziness since. He did have a fall and head strike after initial episode. Bradycardic for EMS received atropine 1 mg prehospital. He arrives to us with mild
hypotension blood pressure 101/49. His pulse is in the 40s intermittently dropping as low as the 20s and 30s. In fact when I first entered the room patient had a prolonged pause greater than 5 seconds and brief loss of consciousness. EKG looks
like complete heart block. Pads applied and code cart at bedside. IV placed labs sent off including CBC and a CMP, thyroid studies, coags. He will need a CT head and cervical spine after his syncope and collapse but for now discussed case with
cardiology they are coming to bedside to assess.
Fortunately patient's heart rate has rebounded to the 60s he seems to be going in and out of heart block. Cardiology at bedside planning for pacemaker later today. N.p.o. for now. Pads will remain in place. Will heart rate in the 60s will try to
take patient for CT to rule out traumatic injury.
CT head and cervical spine negative for any acute posttraumatic injury. CBC shows stable anemia, CMP creatinine 1.6 which is baseline. His troponin is elevated at 0.836; has had similar elevations in the past. Case discussed with hospitalist for
admission pending Check Examiner for pacer.
Chronic conditions affecting care:
CKD, COPD, CAD
*Radiology
Radiology exam reviewed: preliminary read by ED provider and radiology read reviewed
*Pulse Oximetry
Patient hypoxic: no
*EKG
Interpreted by ED Provider?: Yes
Heart Rate: 31
Rate: bradycardiac
Rhythm: a-fib (A-fib with complete heart block and ventricular escape rhythm)
Interval: third degree heart block
QRS Pattern: wide non-specific
Ischemia: no ischemia
*Critical Care Note
Total Time (30-74mins, 75-104mins- exclusive of procedures): 47
comment:
Critical care statement: A total of 47 minutes of critical care time was provided for this patient. This includes management of unstable vital signs, evaluation of the patient at bedside, frequent reassessment, discussion with
consultants/hospitalist, and review of pertinent medical records. This time was separate from time utilized to perform any aforementioned documented procedures
Data Reviewed
Review of Other/Old Records Reveals: Labs and Records
Source: patient and ambulance crew
Patient Management
Discussion with other providers: Hospitalist (Discussed with hospitalist) and Research Program Internship (Discussed with radiology)
Escalation/DeEscalation of care consider admission/obs:
Admission indicated
ED Attending Note
-
Portions of this chart may have been created with voice recognition software.� Occasional wrong word or��sound alike� substitutions may have occurred due to the inherent limitations of voice recognition software.
Discharge Plan
Departure
Patient Disposition: Admit
Date of Disposition: 08/31/23
Time of Disposition: 14:55
Admit to doctor: Brien
Presentation/result/management discussed w/ accepting MD/DO: Hospitalist
Discharge Problem:
Heart block, Multiple skin tears
Prescriptions:
No Action
aspirin 81 MG tablet,delayed release (DR/EC)
81 mg PO DAILY
prednisone 5 mg tablet
5 mg PO DAILY
Rx Instructions:
08/31/2023, take with 40 mg for a total of 45 mg.
furosemide 20 mg tablet
20 mg PO Q48H@0800
coenzyme Q10 [Co Q-10] 100 mg Capsule
100 mg PO DAILY
PreserVision AREDS 4,296 mcg-226 mg-90 mg Capsule
2 cap PO DAILY
fluticasone furoate-vilanterol [Breo Ellipta] 100-25 mcg/dose blister with device
1 inh INHALATION R DAILY
furosemide 40 MG tablet
40 mg PO Q48H@0800
Patient Comments:
08/31/2023, per pt., he takes this med. with his potassium chloride ER 8 meq capsule Q48H@0800.
zolpidem [Ambien] 5 mg Tablet
5 mg PO HS
prednisone 10 mg tablet
40 mg PO DAILY
Rx Instructions:
08/31/2023, take with 5 mg for a total of 45 mg.
potassium chloride 8 mEq Capsule, Extended Release
8 meq PO Q48H@0800
Patient Comments:
08/31/2023, per pt., he takes this med. with his furosemide 40 mg tablet Q48H@0800.
Interventions
Interventions:
*Risk Screen - Suicide Last Done: 08/31/23 13:30
*General Assessment Last Done: 08/31/23 13:30
*Neglect/Abuse Screening Last Done: 08/31/23 13:30
ED- Fall Risk Assessment Last Done: 08/31/23 13:30
*ED COVID-19 Vaccine History Last Done: 08/31/23 13:30
ED- Pulmonary Assessment Last Done: 08/31/23 13:30
ED- Cardiac Assessment Last Done: 08/31/23 13:30
Discharge Date and Time
Print Language: GERMAN
[2023-08-31 14:17] LABS: % Basophils 0.2 % (0-2); % Eosinophils 0.1 % (0-6); % Immature Granulocytes 1.7 % (0-0.5); % Lymphocytes 3.4 % (20.5-51.1); % Monocytes 3.7 % (1.7-9.3); % Neutrophils 90.9 % (42.2-75.2); Absolute Immature Granulocytes 0.2 10^3/uL (0-0.05); Absolute Lymphocytes 0.4 10^3/uL (1.2-3.4); Absolute Monocytes 0.4 10^3/uL (0.1-0.6); Absolute Neutrophils 10.5 10^3/uL (1.4-6.5); Hematocrit 35.7 % (39.0-52.0); Hemoglobin 11.7 g/dL (13.0-18.0); Mean Corp Hgb Conc. 32.8 g/dL (33.0-37.0); Mean Corpuscular Hgb 32.8 pg (27.0-31.0); Nucleated Red Blood Cells % 0 % (-); Platelet Count 203 10^3/uL (130-400); Red Blood Cell Count 3.57 10^6/uL (4.70-6.10); Red Cell Dist. Width 16.3 % (11.5-14.5); White Blood Cell Count 11.5 10^3/uL (4.8-10.8)
--- NOTE | 2023-08-31 14:21 | CON.CAR ---
Addendum entered and electronically signed by Anne Marie Silver MD 08/31/23 16:30:
I saw and examined the patient.
The MACHINE CANDLE MOLDER's note was reviewed and I agree with the note.
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
an episode of witnessed syncope at home nwhile walking in the kitchen. He had no prodrome. He called EMS, required atropine for low heart rates. IN the ED had an additional syncopal episode in the setting of a long pause. ECG shows high grade av
block with ventricular escape. He otherwise was feeling well. He denies cp or sob. on exam, he has a contusion on his head at sight of impact, he has multiple skin tears from the fall. He has chronic le edema and edema in his hand. lungs are cta.
he is alert and oriented x3. His is at the bedside. She adds to the history. Telemetry reviewed shows multiple long pauses, periods of sinus bradycardia with a left bundle branch block and periods of high-grade AV block. It is clear that an
urgent pacemaker is indicated. Will arrange for this procedure. He is agreeable. Urgent echo at the bedside showed normal LVEF with moderate concentric LVH, there were low E prime's, this could be consistent with amyloidosis. This could be
considered in the future. He does have renal failure and we will need to monitor this over time. He does not appear volume overloaded. Will continue his aspirin given his history of CAD. Medicine to admit the patient for further care of his PMR,
COPD and CKD. Appreciate the input of the EP and assisting with pacemaker placement.
Original Note:
Consultation
Consultation Request
Date/Time Consultation Requested: 08/31/23 14:00
Date/Time Consultation Performed: 08/31/23 14:00
Requesting Provider: Dr. Gallegos
Performing Provider: BERNIE Miller for Dr. Silver
Reason for Consultation: Syncope, heart block
Medical History
-
Chief Complaint: Syncope
History of Present Illness:
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
He was walking to the kitchen and suddenly collapsed and lost consciousness. He denies prodrome. He is not having any chest pain or shortness of breath. When EMS arrived, he was found to be bradycardic. He was given atropine 1 mg en route. He
is not on any AV clara agents. He was found to be in complete heart block on EKG and had a witnessed syncopal episode by the ER physician. Longest pause on telemetry for my review 5.27 seconds. He has an occipital head laceration. A CAT scan has
been ordered.
Past Medical History
Past Medical History: CAD, CHF, COPD, Renal Failure and Other (PMR)
Past Surgical History: Orthopedic
Social History
Tobacco: Non-Smoker
Alcohol: None
Drug: None
Personal:
Living: With Family
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
Family History
Family History: Reviewed & Not Pertinent
Allergies / Home Medications
Allergy/AdvReac Type Severity Reaction Status Date / Time
tetracycline Allergy eruption Verified 08/31/23 13:40
of penis
�Medication �Instructions �Recorded �Confirmed �Type
pantoprazole 40 mg tablet,delayed 40 mg PO DAILY Gastrointestinal 01/30/19 08/29/23 History
release issue
magnesium oxide 400 mg PO DAILY Supplement 02/03/21 08/29/23 History
aspirin 81 mg tablet,delayed 81 mg PO DAILY Heart 04/15/21 08/29/23 History
release disease/condition
potassium chloride 8 mEq 8 meq PO Q48H Supplement 04/15/21 08/29/23 History
tablet,extended release
coenzyme Q10 100 mg capsule (Co 100 mg PO DAILY Supplement 06/24/23 08/29/23 History
Q-10)
fluticasone furoate 100 1 inh inhalation R DAILY 06/24/23 08/29/23 History
mcg-vilanterol 25 mcg/dose Lung/Breathing Issues
inhalation powder (Breo Ellipta)
furosemide 20 mg tablet 20 mg PO Q48H Fluid 06/24/23 08/29/23 History
Retention/Swelling
furosemide 40 mg tablet 40 mg PO Q48H Fluid 06/24/23 08/29/23 History
Retention/Swelling
prednisone 5 mg tablet 5 mg PO DAILY INFLAMMATION 06/24/23 08/29/23 History
vitamins A,C,E-oppx-djsngf 4,296 1 cap PO DAILY Supplement 06/24/23 08/29/23 History
mcg-226 mg-90 mg capsule
(PreserVision AREDS)
zolpidem 5 mg tablet (Ambien) 5 mg PO HS Sleep 06/24/23 08/29/23 History
prednisone 10 mg tablet 40 mg PO DAILY inflammation 08/29/23 08/29/23 History
Review of Systems
-
History Source: Patient
All other systems: Negative unless noted
Constitutional: Fatigue
Respiratory: No Symptoms
Cardiac: No Symptoms
Musculoskeletal: Edema
Physical Exam
Vital Signs
Temp Pulse Resp BP Pulse Ox
97.6 F 64 25 104/64 94
08/31/23 13:30 08/31/23 14:00 08/31/23 14:00 08/31/23 14:00 08/31/23 14:00
Physical Exam
General: Well Developed, Well Nourished, No Apparent Distress and Comfortable
HEENT: Moist Mucous Membranes
Respiratory: Clear and Non Labored Respirations
Cardiac: S1/S2, Irregular Rhythm and Peripheral Edema (+2 RUE, +3 pitting B/L LE)
Breast: Deferred by me
GI: Soft, Non Tender, Non Distended and Normal Bowel Sounds
Genito-urinary: No Costovertebral Tender
Musculoskeletal: No Clubbing and No Cyanosis
Skin: Warm and Dry
Neuro: AO x 3
Hematologic/Lymphatic: No Lymphadenopathy
Psych: Calm
Impression / Plan
-
Complete heart block with syncope
-No AV clara agents
-He was given atropine by EMS
-Urgent PPM to be placed today
-Last meal ~07:00
-Will start dopamine if necessary prior to PPM but complex appears wide
Syncope, in the setting of complete heart block, with occipital trauma, per primary
HFpEF, chronic
-He reports chronic LE edema
-He is not short of breath
-Would not start GDMT now (SGLT2, ARB, etc), would defer to a Engraver Machine given kidney disease
-Low sodium diet, daily weight
-Heart failure education
CAD
-Stable without CP
-On ASA, continue
-LDL 56 (01/2023)
-[facility] Jan 2019: EF 64%, mLAD stent patent, two myocardial bridges in LAD, 50% dRCA (not flow-limiting)
Abnormal troponin, nonischemic myocardial injury in the setting of complete heart block
-He is chest pain free
-Troponin 0.836 on arrival
CKD3b, he does not see a Engraver Machine, managed by PCP
Iron deficiency anemia, likely in the setting of renal disease
Aortic stenosis, mild
PMR, steroid dependent
COPD
Data Reviewed
-
EKG: Report Reviewed by me (High degree AV block)
Medical Tests (Nuc Med, Echo etc): Report Reviewed by me (TTE and C as above)
Labs: Labs Reviewed by me
Old Records: Reviewed
[2023-08-31 14:28] LABS: INR 1.07; PT 13.9 Sec (11.4-14.6)
[2023-08-31 14:32] LABS: ALT (SGPT) 37 U/L (0-50); AST (SGOT) 45 U/L (17-59); Albumin 2.9 g/dl (3.5-5.0); Alkaline Phosphatase 97 U/L (38-126); Blood Urea Nitrogen 51 mg/dl (9-20); Calcium 7.8 mg/dl (8.4-10.2); Carbon Dioxide 23 mmol/L (22-30); Chloride 104 mmol/L (98-107); Estimated Creatinine Clearance 30 ml/min; Glucose 129 mg/dl (70-99); Potassium 4.2 mmol/L (3.5-5.1); Sodium 133 mmol/L (135-145); Total Bilirubin 1.3 mg/dl (0.2-1.3); Total Protein 5.1 g/dl (6.3-8.2); eGFR 40.93
[2023-08-31 14:47] LABS: Troponin I 0.836 ng/ml
[2023-08-31 15:01] LABS: TSH Reflex To Free T4 5.32 uIU/ml (0.47-4.68)
--- NOTE | 2023-08-31 15:26 | HPS.HSE ---
Family Physician
<Raven Uribe PA-C - Last Filed: 08/31/23 15:48>
-
Family Physician: * NONE
Chief Complaint
<Raven Uribe PA-C - Last Filed: 08/31/23 15:48>
-
Syncopal
History of Present Illness
Patient is an 88 y/o male past medical history of CAD, CHF, CKD, COPD and CKD who presents following an syncopal episode. Patient does not recall the event. According to his he walked into the kitchen for lunch and passed out. She notes he
was unconscious for a short time. There are no reports of dizziness, chest pain or palpitations prior to the event. Patient denies prior syncopal episodes. ECG in ED showed complete heart block. Reviewed with Cardiology. Plan is for pacemaker
this afternoon.
Medical History
<Raven Uribe PA-C - Last Filed: 08/31/23 15:48>
Past Medical History
Past Medical History: Reports Other
Additional Past Medical History:
Coronary Artery Disease s/p Cardiac Stent
Chronic HFpEF
Essential Hypertension
Hyperlipidemia
CKD Stage 3B
Chronic Venous Insufficiency
COPD
Polymyalgia Rheumatica
Spinal Stenosis
Past Surgical History: Reports Other
Additional Past Surgical History:
Cardiac Stent
Right Total Hip Replacement
Bilateral Carpal Tunnel
Bilateral Cataracts
Social History
Tobacco: Non-smoker
Alcohol: Occasional
Drug: None
Family History
Family History: Not pertinent
Allergies / Home Medications
Allergies reflects when Allergies were last updated in [facility].
Home Medications with original date entered in [facility]
Allergy/Medication List:
Allergies
Allergy/AdvReac Type Severity Reaction Status Date / Time
tetracycline Allergy eruption Verified 08/31/23 13:40
of penis
Home Medications
aspirin 81 mg tablet,delayed release 81 mg PO DAILY Heart disease/condition 04/15/21
coenzyme Q10 100 mg capsule (Co Q-10) 100 mg PO DAILY Supplement 06/24/23
fluticasone furoate 100 mcg-vilanterol 25 mcg/dose inhalation powder (Breo Ellipta) 1 inh inhalation R DAILY Lung/Breathing Issues 06/24/23
furosemide 20 mg tablet 20 mg PO Q48H@0800 Fluid Retention/Swelling 06/24/23
furosemide 40 mg tablet 40 mg PO Q48H@0800 Fluid Retention/Swelling 06/24/23
prednisone 5 mg tablet 5 mg PO DAILY INFLAMMATION 06/24/23
vitamins A,C,E-etun-adbulf 4,296 mcg-226 mg-90 mg capsule (PreserVision AREDS) 2 cap PO DAILY Supplement 06/24/23
zolpidem 5 mg tablet (Ambien) 5 mg PO HS Sleep 06/24/23
prednisone 10 mg tablet 40 mg PO DAILY inflammation 08/29/23
potassium chloride 8 mEq capsule,extended release 8 meq PO Q48H@0800 08/31/23
Review of Systems
<Raven Uribe PA-C - Last Filed: 08/31/23 15:48>
-
A 12 point ROS was completed and negative except as noted: Yes
Constitutional: Denies Fever or Chills
Respiratory: Denies Cough or Trouble Breathing
Cardiac: Reports Syncope; Denies Chest Pain or Palpitations
Physical Exam
<Raven Uribe PA-C - Last Filed: 08/31/23 15:48>
Vital Signs
Vital Signs
Temp Pulse Resp BP Pulse Ox
97.6 F 63 14 115/62 97
08/31/23 13:30 08/31/23 15:00 08/31/23 15:00 08/31/23 15:00 08/31/23 15:00
Physical Exam
General: Comfortable and Conversant
HEENT: Anicteric and Moist mucous membranes
Respiratory: Clear and Non Labored Respirations
Cardiac: S1/S2, Regular Rhythm and Bradycardia (Slightly)
GI: Soft and Non Tender
Rectal: Deferred by Provider
Musculoskeletal: No Clubbing, No Cyanosis and Other (Edema of all four extremities which is chronic)
Skin: Warm, Dry and Other (Large skin tear across right back; Purpura noted bilateral upper extremities)
Neuro: Awake, Alert, Oriented and Nonfocal/grossly intact
Psych: Calm
Laboratory Results
<Raven Uribe PA-C - Last Filed: 08/31/23 15:48>
-
08/31/23 13:28
08/31/23 13:28
Laboratory Results
PT 13.9 Sec (11.4-14.6) 08/31/23 13:28
INR 1.07 08/31/23 13:28
Total Bilirubin 1.3 mg/dl (0.2-1.3) 08/31/23 13:28
AST 45 U/L (17-59) 08/31/23 13:28
ALT 37 U/L (0-50) 08/31/23 13:28
Alkaline Phosphatase 97 U/L (38-126) 08/31/23 13:28
Troponin I 0.836 ng/ml H* 08/31/23 13:28
Data Reviewed
<Raven Uribe PA-C - Last Filed: 08/31/23 15:48>
-
Lab Data: Labs Reviewed by me
Impression/Plan
<Raven Uribe PA-C - Last Filed: 08/31/23 15:48>
-
Syncope secondary to Complete Heart Block
-Cardiology involved - Planning for PPM today
-Continue dopamine for now
Coronary Artery Disease s/p Cardiac Stent
-Continue aspirin
Chronic HFpEF
-Continue furosemide
-Monitor Is&Os and Daily Weights
CKD Stage 3B
-Creatinine at baseline
COPD, no acute exacerbation
-Continue Breo
Polymyalgia Rheumatica
-Continue Prednisone
<Gomez Mora DO - Last Filed: 08/31/23 15:56>
-
Syncope secondary to Complete Heart Block
-Cardiology involved - Planning for PPM today
-Continue dopamine for now
Coronary Artery Disease s/p Cardiac Stent
-Continue aspirin
Chronic HFpEF
-Continue furosemide
-Monitor Is&Os and Daily Weights
CKD Stage 3B
-Creatinine at baseline
COPD, no acute exacerbation
-Continue Breo
Polymyalgia Rheumatica
-Continue Prednisone
Attending note:
Patient seen and examined and discussed with DUNCAN Brooke and I agree with her note.
Gen-AAOx3, NAD
HEENT-NC, AT, anicteric, clear oral mm
Neck-supple
CV-reg, no M, +S1/S2
Lungs-clear B/L
Abd-soft, NT, ND
Ext-bilateral lower extremity edema
Musculoskeletal-no cyanosis, clubbing
Skin-warm and dry, Thin frail skin with diffuse ecchymoses on bilateral upper and lower extremities, multiple skin tears on the back
neuro-grossly non-focal
Psych-calm, cooperative
Complete heart block - with associated syncope. Will need permanent pacemaker. Cardiology consulted. Admit to IVU. No history of syncope in the past. Not on rate controlling meds at home. TSH 5.3, free T4 normal.
Currently patient asymptomatic. Heart rate 65.
Multiple skin tears - due to syncope, trauma. Underlying friability of skin due to chronic steroid use. Consult wound care.
Hyponatremia - sodium 133. Check urine studies.
CKD 3B - renal function at baseline.
CAD - stable.
Essential hypertension - stable.
Polymyalgia rheumatica - steroid-dependent. Currently on prednisone 45 mg daily. Follow-up with rheumatology after discharge.
COPD without exacerbation
Chronic anemia - likely due to chronic inflammation. Hemoglobin at baseline.
Full code
[2023-08-31 15:30] LABS: Free T4 1.26 ng/dl (0.78-2.19)
--- NOTE | 2023-08-31 17:46 | ITS.CL.PACE ---
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
Pacemaker Implant
Procedure Report:
PACEMAKER IMPLANT REPORT
Primary Care Provider: Dr. Primo Blanton
Primary facility security officer: Dr. Hussein Dominguez
Date of Procedure: August 31, 2023
Procedure:
Implantation of dual-chamber permanent pacemaker utilizing the left bundle branch for conduction system pacing
Indication/Diagnosis:
Non-reversible symptomatic bradycardia due to third degree atrioventricular block
After informed consent was obtained, 'time out' was called and confirmed, the patient was prepped and draped in a sterile fashion. Lidocaine with epi was used for local anesthesia. Central venous access was obtained via subclavian venipuncture. An
incision was made along the left chest and a pre-pectoral pocket was formed. Using a Seldinger technique and peel-away sheaths, the pacing leads were placed under fluoroscopic guidance.
Fluoroscopy was used to determine likely anatomic site for left bundle branch pacing. The Medtronic C315 sheath was used to deliver the Medtronic 3830 Selectsecure pacing lead with the helix exposed just exposed from the sheath tip during continuous
monitoring when pacemapping the septum during gentle clockwise rotation to obtain a paced QRS morphology of a W pattern in lead V1. Once the suspected optimal site was identified, lead deployment was performed with several rapid rotations as paced
QRS morphology was intermittently monitored until a paced QRS complex in lead V1 demonstrated development of an R wave (QR).
Unipolar pacing impedance dropped by approximately 200 ohms suggesting it had reached the left ventricular subendocardial.
Stable VEgm injury current is present throughout lead position and at end of case.
Final unipolar pacing impedance is 1000 Ohms
Unipolar pacing threshold is stable at 1 V @ 0.4 ms.
Final conduction system paced QRS complex duration is 113 ms
LVAT is 56 ms and peak V5 -> peak V1 timing is 63 ms
Right atrial lead was placed at the RAA.
Once testing (see below) showed adequate and stable function, the leads were secured using the suture sleeves. The pocket was liberally irrigated with antibiotic solution. The leads were connected to the generator header and the leads and
generator were placed within the pocket. Fluoroscopy confirmed stable lead position. The pocket was closed in the typical fashion.
Fluoroscopy was used to guide lead placement.
IMPLANTS:
Medtronic [id number], SN: [id number], Left Pectoral
RA: Medtronic 5076-45, SN: [id number], RAA
RV: Medtronic 3830 , SN:[id number], Interventricular septum at LBB
DEVICE TESTING:
Sensing: RA 0.8 mV, RV 5.1 mV
Capture: RA 1 V@0.4ms,
Ohms: RA 437, RV 703
FINAL PROGRAMMING
Kole Pacing: AAIR+ 60-130 ppm
COMPLICATIONS:
None
CONCLUSIONS:
Successful implant of dual chamber permanent pacemaker utilizing Left Bundle Branch conduction system capture for pacing.
RECOMMENDATIONS:
1. Post-op care (tele, CXR, IV abx)
2. In-Office wound check in 5-7 day at [facility]
Copy to:
Dr. Primo Blanton
Dr. Hussein Dominguez
[2023-08-31] MEDS: TYLENOL 650 MG PO ×2 (18:39→22:34)
--- NOTE | 2023-08-31 18:45 | PTCARENOTE ---
Assumed care of pt upon transfer from [facility] post PPM insertion. Pt received awake and alert, Ox3, VSS, CM shows A/V pacing 60's. POX 96% on RA. Tylenol 650 mg given as per MAR for 4/10 body pain. PPM intact to left upper chest, pressure dsg intact.
at bedside.
[2023-08-31] MEDS: AMBIEN 5 MG PO (22:34)
[2023-09-01] MEDS: FLUSH (NSS) 1 FLUSH IV ×2 (00:32→09:33)
[2023-09-01] MEDS: ANCEF 5 IV ×2 (00:32→09:31)
--- NOTE | 2023-09-01 00:42 | PTCARENOTE ---
Pt rec'd at change of shift awake,alert with pressure drsg to left ant pacer site, sling to left arm in use. PCXR completed.
Spouse at bedside, helped pt eat. Pt is alert and oriented with c/o back pain medicated with Tylenol.
Multiple skin tears on left shoulder ,right forearm and many bleeding skin tears on back. All sites cleansed with nss and adaptive applied.
B/l LE edema noted. LLE with redness from knee down no open skin noted. Pt had on own tubigrip, removed at HS. Medicated with Tylenol for back pain (mid right back)call saunders within reach.
[2023-09-01 02:53] VITALS: BP 85/53
[2023-09-01 02:54] VITALS: BP 95/57
[2023-09-01 03:47] LABS: Hematocrit 29.3 % (39.0-52.0); Hemoglobin 10.3 g/dL (13.0-18.0); Mean Corp Hgb Conc. 35.2 g/dL (33.0-37.0); Mean Corpuscular Hgb 33.4 pg (27.0-31.0); Mean Corpuscular Volume 95.1 fL (80.0-94.0); Mean Platelet Volume 9.9 fL (7.4-10.4); Platelet Count 189 10^3/uL (130-400); Red Blood Cell Count 3.08 10^6/uL (4.70-6.10); Red Cell Dist. Width 16.5 % (11.5-14.5); White Blood Cell Count 8.3 10^3/uL (4.8-10.8)
[2023-09-01 03:59] LABS: Blood Urea Nitrogen 50 mg/dl (9-20); Carbon Dioxide 27 mmol/L (22-30); Chloride 102 mmol/L (98-107); Estimated Creatinine Clearance 29 ml/min; Glucose 93 mg/dl (70-99); Magnesium 2.2 mg/dl (1.6-2.3); Potassium 4.1 mmol/L (3.5-5.1); Sodium 137 mmol/L (135-145); eGFR 40.93
[2023-09-01 07:19] VITALS: BP 89/53
[2023-09-01 07:20] LABS: Glucose - Point of Care 109 mg/dl (70-99)
[2023-09-01] MEDS: SYMBICORT 160/4.5 MCG INHALER 2 PUFF INH (07:21)
--- NOTE | 2023-09-01 09:07 | W.PN.CD ---
Addendum entered and electronically signed by Josef Petty MD 09/01/23 11:54:
88 yo male admitted with complete heart block and syncope. Now s/p PPM 08/30. Doing well, no complaints. Exam with RRR, no murmurs, trace edema. Echo with EF 50-55%. Tele: AV paced.
Acute non-ischemic myocardial injury. In setting of complete heart block and syncope. No chest pain. Echo with EF 50-55%. We discussed trending to peak: patient declines additional bloodwork.
s/p PPM. Stable. He will follow up in our office.
Please call us with additional questions.
Original Note:
Today's Communication / Plan
-
s/p DC MDT PPM 08/31/23, normal function.
reviewed left arm restrictions with patient.
stable for d/c from cardiac standpoint, outpatient follow up/incision check arranged.
Impression / Plan
-
Complete heart block with syncope:
-He was given atropine by EMS.
-Urgent DC MDT PPM placed yesterday.
-Reviewed left arm restrictions with patient.
Syncope, in the setting of complete heart block, with occipital trauma:
-Per primary.
HFpEF: chronic.
-He reports chronic LE edema, currently at baseline.
-Would not start GDMT now (SGLT2, ARB, etc), would defer to a Meteorological Engineer given CKD3b.
-Low sodium diet, daily weight.
-Heart failure education.
CAD:
-Stable without CP.
-Continue ASA.
-LDL 56 on 01/2023.
-C Jan 2019: EF 64%, mLAD stent patent, two myocardial bridges in LAD, 50% dRCA (not flow-limiting).
Acute nonischemic myocardial injury: in the setting of complete heart block and syncope.
-Denies anginal symptoms.
-Troponin 0.836 on arrival, trend to peak.
CKD3b, chronic, he does not see a Meteorological Engineer, managed by PCP.
Iron deficiency anemia, likely in the setting of renal disease
Aortic stenosis, mild on echo 08/31/23.
PMR, steroid dependent.
COPD, chronic, stable.
Physical Exam
Vital Signs/Labs
Vital Signs
Temp Pulse Resp BP Pulse Ox
97.7 F 78 15 89/53 94
09/01/23 07:16 09/01/23 08:00 09/01/23 07:26 09/01/23 07:19 09/01/23 07:16
08/31/23 09/01/23 09/02/23
06:59 06:59 06:59
Actual Weight 66.3 kg
09/01/23 03:13
09/01/23 03:13
PT 13.9 Sec (11.4-14.6) 08/31/23 13:28
INR 1.07 08/31/23 13:28
Magnesium 2.2 mg/dl (1.6-2.3) 09/01/23 03:13
Free T4 1.26 ng/dl (0.78-2.19) 08/31/23 13:55
LAB Results
08/31/23 08/31/23 09/01/23
13:28 19:30 03:13
Troponin I 0.836 H* Cancelled 1.480 H*
Physical Exam
Constitutional: No acute distress
EENT: Anicteric and Moist mucous membranes
Cardiovascular: Rhythm & rate is regular and Pedal edema present (moderate b/l LE)
Respiratory: Respiratory effort normal and Lungs clear to auscul.
GI: Soft, Non tender and Normal bowel sounds
Neuro/Psych: AO x 3
Other: Skin (warm, dry. diffuse ecchymosis to b/l UE and anterior chest. abrasion to left shoulder)
Data Reviewed
-
Date of Service: September 01, 2023
Medical Decision Making: External Notes and Reviewed Test Results
EKG: Tracing Personally Visualized and interpreted
Echo: Report Reviewed by me
Labs: Labs Reviewed by me
--- NOTE | 2023-09-01 09:21 | W.PN.HOSP.TC ---
Addendum entered and electronically signed by Gomez Mora DO 09/01/23 13:59:
Stable for discharge home today.
Cardiology agrees with discharge plan.
Resume VN.
Outpatient follow-up with PCP and cardiology.
Original Note:
Today's Communication/Plan
-
Wound care consult
PT consult
Await cardiology input
Assessment / Plan
Assessment / Plan
Gen-AAOx3, NAD
HEENT-NC, AT, anicteric, clear oral mm
Neck-supple
CV-reg, no M, +S1/S2
Lungs-clear B/L
Abd-soft, NT, ND
Ext-bilateral lower extremity edema
Musculoskeletal-no cyanosis, clubbing
Skin-warm and dry, Thin frail skin with diffuse ecchymoses on bilateral upper and lower extremities, multiple skin tears on the back
neuro-grossly non-focal
Psych-calm, cooperative
Complete heart block - with associated syncope. Permanent pacemaker placed yesterday. No pneumothorax on chest x-ray. Left arm restrictions reviewed with patient by cardiology. Outpatient follow-up.
Elevated troponin -troponin rising, 1.4 today. Denies anginal symptoms. Suspect acute nonischemic myocardial injury, possibly due to heart block. Defer to cardiology.
Multiple skin tears - due to syncope, trauma. Underlying friability of skin due to chronic steroid use. Consult wound care.
Hyponatremia - sodium 137 today.
CKD 3B - renal function at baseline.
Chronic heart failure preserved EF -close outpatient follow-up with cardiology. Continue furosemide.
CAD - stable.
Essential hypertension - stable.
Polymyalgia rheumatica - steroid-dependent. Currently on prednisone 45 mg daily. Follow-up with rheumatology after discharge.
COPD without exacerbation
Chronic anemia - likely due to chronic inflammation. Hemoglobin at baseline.
Full code
Dispo -await PT input. Potential discharge if cleared by cardiology.
Anticipated Discharge: Today
Subjective/Interval History
-
Date of Service: September 01, 2023
Patient seen and examined. No complaints.
Objective Data
-
Labs:
Laboratory Results
09/01/23
03:13
WBC 8.3
Hgb 10.3 L
Hct 29.3 L
Plt Count 189
Sodium 137
Potassium 4.1
Chloride 102
Carbon Dioxide 27
BUN 50 H
Creatinine 1.6 H
Glucose 93
Calcium 8.0 L
Vital Signs:
Vital Signs
Temp Pulse Resp BP Pulse Ox
97.7 F 78 15 89/53 94
09/01/23 07:16 09/01/23 08:00 09/01/23 07:26 09/01/23 07:19 09/01/23 07:16
I&O
08/31/23 09/01/23 09/02/23
06:59 06:59 06:59
Output Total 250 / 250
Balance -250 / -250
Review of Systems
-
History Source: Patient
All other systems: Reviewed and negative
[2023-09-01 09:31] VITALS: BP 114/56
[2023-09-01] MEDS: DELTASONE 5 MG PO (09:31)
[2023-09-01] MEDS: DELTASONE 40 MG PO (09:31)
[2023-09-01] MEDS: KCL 10 MEQ PO (09:32)
[2023-09-01] MEDS: HEPARIN 5000 UNITS SC (09:33)
[2023-09-01] MEDS: ASPIR LOW (ENTERIC COATED) 81 MG PO (09:33)
[2023-09-01] MEDS: LASIX 40 MG PO (09:34)
[2023-09-01] MEDS: TYLENOL 650 MG PO (09:40)
[2023-09-01 11:15] VITALS: BP 111/56
--- NOTE | 2023-09-01 11:57 | CM ---
Reviewed chart. Met with Dr. Chance to review discharge plans. He states prior to admission he resides with his spouse in a three story home with four steps to enter. He states he has a first floor set-up. He states prior to admission he ambulates
with a rolling walker. He states he has a rolling walker and single point cane at home. He states he has has VNA in the past with [facility]. He states he would like [facility] again[facility]. Sent the referral. He states he has a prescription plan and uses mail order and [facility]. Will need to see his current functional level to see if he will have any skilled care needs. Awaiting physical therapy evaluation. Medical
work-up in progress. The discharge plan is to return home with his spouse and [facility] when medically stable.
--- NOTE | 2023-09-01 11:59 | WOUNDNOTE ---
RIGHT UPPER ARM
--- NOTE | 2023-09-01 12:00 | WOUNDNOTE ---
RIGHT UPPER ARM
--- NOTE | 2023-09-01 12:01 | WOUNDNOTE ---
[facility] RN note: Patient admitted with bilateral UE and back skin tears s/p fall
See H&P for complete history.
PMH: Coronary Artery Disease s/p Cardiac Stent, Chronic HFpEF,Essential Hypertension, Hyperlipidemia, CKD Stage 3B, Chronic Venous Insufficiency
COPD, Polymyalgia Rheumatica, Spinal Stenosis,chronic steroid use
Wound Location and type/assessment: Patient admitted with: Bilateral UE and back skin s/p trauma from fall. UE's are ecchymotic and edematous. Patient reports UE swelling is secondary to polymyalgia. Right arm skin tear is superficial and friable.
Loose skin was pulled over left UE skin tear. Right back with multiple friable superficial skin tears. LE with venous stasis changes. Small open blister on left LE appears to be related to edema. Patient states keeps this wound covered with
silicone foam. Patient reports he wears tubi physician relations specialist and moisturizes skin on UE and LE daily. He was sitting in chair at time of assessment and states he can turn in bed and ambulates with walker at home. Sacrum and heels intact
Appetite: Reports very good appetite
Pressure redistribution devices in place: Versa Care Air, air cushion to chair
Plan: Saline was used to remove all old dressing. Recommend not using silicone foam or adhesives on UE's due to very fragile skin. See orders for local wound care provided to UE and back. Moisturizer and compression with size G tubi applied to
legs. Patient tolerated all wound care well. Will confirm orders with hospitalist and update nurse. Updated care plan and will follow as needed.
Note to case management of equipment requested for discharge:
Recommend follow up at wound care center upon discharge.
--- NOTE | 2023-09-01 13:13 | PTCARENOTE ---
Received patient this morning resting in bed. Aquacel dressing left upper chest with scant amount of serosanguineous drainage noted. Patient with multiple skin tears and wounds. Seen by wound care nurse, wounds assessed and dressings applied along
with compression stockings. Patient was seen by cardiology and is refusing third troponin. PT notified of consult, discharge planning.
[2023-09-01 13:35] VITALS: BP 111/56; BP 116/50; PULSE 70
--- NOTE | 2023-09-01 14:01 | W.DS.TRANS ---
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
-
Discharge Instructions:
Discharge Diagnosis/Procedures Complete heart block, syncope, pacemaker implant
Diet Low Fat,Low Cholesterol,2 Gram Sodium
Activity As tolerated,With assistance
Driving Restrictions No driving
Bathing Restrictions None
Other Services VN
Instructions:
Stand-Alone Forms: DC Inst - Implanted Device
Changes to Home Medications: No
Discharge Medications:
DC Medications w/original date entered in [facility]
aspirin 81 mg tablet,delayed release 81 mg PO DAILY Heart disease/condition 04/15/21
coenzyme Q10 100 mg capsule (Co Q-10) 100 mg PO DAILY Supplement 06/24/23
fluticasone furoate 100 mcg-vilanterol 25 mcg/dose inhalation powder (Breo Ellipta) 1 inh inhalation R DAILY Lung/Breathing Issues 06/24/23
furosemide 20 mg tablet 20 mg PO Q48H@0800 Fluid Retention/Swelling 06/24/23
furosemide 40 mg tablet 40 mg PO Q48H@0800 Fluid Retention/Swelling 06/24/23
prednisone 5 mg tablet 5 mg PO DAILY INFLAMMATION 06/24/23
vitamins A,C,R-zdkg-abjzch 4,296 mcg-226 mg-90 mg capsule (PreserVision AREDS) 2 cap PO DAILY Supplement 06/24/23
zolpidem 5 mg tablet (Ambien) 5 mg PO HS Sleep 06/24/23
prednisone 10 mg tablet 40 mg PO DAILY inflammation 08/29/23
potassium chloride 8 mEq capsule,extended release 8 meq PO Q48H@0800 Supplement 08/31/23
Home Medication Changes
Pending Results: No
--- NOTE | 2023-09-01 14:53 | PTCARENOTE ---
Patient seen by PT and ok for discharge home with VN. Reviewed discharge instructions with the patient and his and they state their understanding. Patient discharged home with supplies for wound care, to be followed by [facility] at home.
== END 2023-09-01 15:27 | disposition home health service (06) | DRG 243 ==
LOC: IVU 15:45
PROVIDERS: Internal Medicine Cardiovascular Disease; Physician Assistant Medical; ADMITTING PHYSICIAN Hospitalist; CONSULT PHYSICIAN Internal Medicine Cardiovascular Disease; EMERGENCY PHYSICIAN Emergency Medicine
PROC: 0JH606Z Insertion of Pacemaker, Dual Chamber into Chest Subcutaneous Tissue and Fascia, Open Approach (ICD-10-PCS; 2023-08-31)
PROC: 02H63JZ Insertion of Pacemaker Lead into Right Atrium, Percutaneous Approach (ICD-10-PCS; 2023-08-31)
PROC: 02HK3JZ Insertion of Pacemaker Lead into Right Ventricle, Percutaneous Approach (ICD-10-PCS; 2023-08-31)
DX: I44.2 Atrioventricular block, complete (principal); E87.1 Hypo-osmolality and hyponatremia; I13.0 Hypertensive heart and chronic kidney disease with heart failure and stage 1 through stage 4 chronic kidney disease, or unspecified chronic kidney disease; I50.32 Chronic diastolic (congestive) heart failure; I5A Non-ischemic myocardial injury (non-traumatic); R55 Syncope and collapse; J44.89 Other specified chronic obstructive pulmonary disease; E78.5 Hyperlipidemia, unspecified; I25.10 Atherosclerotic heart disease of native coronary artery without angina pectoris; K21.9 Gastro-esophageal reflux disease without esophagitis; I89.0 Lymphedema, not elsewhere classified; M19.90 Unspecified osteoarthritis, unspecified site; D50.9 Iron deficiency anemia, unspecified; I35.0 Nonrheumatic aortic (valve) stenosis; M35.3 Polymyalgia rheumatica; M48.00 Spinal stenosis, site unspecified; S01.91XA Laceration without foreign body of unspecified part of head, initial encounter; X58.XXXA Exposure to other specified factors, initial encounter; D64.9 Anemia, unspecified; I87.2 Venous insufficiency (chronic) (peripheral); S20.419A Abrasion of unspecified back wall of thorax, initial encounter; S40.812A Abrasion of left upper arm, initial encounter; S40.811A Abrasion of right upper arm, initial encounter; Y92.009 Unspecified place in unspecified non-institutional (private) residence as the place of occurrence of the external cause; Z96.641 Presence of right artificial hip joint; Z79.82 Long term (current) use of aspirin; Z79.51 Long term (current) use of inhaled steroids; Z79.52 Long term (current) use of systemic steroids; Z88.1 Allergy status to other antibiotic agents; Z95.5 Presence of coronary angioplasty implant and graft
CPT/HCPCS: 93308; 33208; 70450; 71045; 72125; 80048; 80053; 82962; 83735; 84439; 84443; 84484; 85025; 85027; 85610; 93005; 94640; 97163; 99291; C1769; C1785; C1887; C1892; C1898; Q9967